=== PATIENT | male | born 1970 | race Caucasian/White ===

== ENCOUNTER 2022-09-08 01:43 | Inpatient (IN) ==
[2022-09-08] MEDS ORDERED: IOPAMIDOL 100 ML BOTTLE IV ONE (01:44)
[2022-09-08] MEDS ORDERED: ONDANSETRON 4 MG/2 ML VIAL IV ONE (02:40)
[2022-09-08] MEDS ORDERED: PANTOPRAZOLE 40 MG VIAL IV ONE (02:40)
[2022-09-08] MEDS ORDERED: fentaNYL 100 MCG/2 ML VIAL IV ONE ×3 (02:40→04:27)
--- NOTE | 2022-09-08 02:46 | Emergency Department Note ---
Abdominal Pain HPI General Chief Complaint: Abdominal Pain Stated Complaint: upper abd pain Time Seen by Provider: 09/08/22 01:55 Source: patient Mode of arrival: ambulatory Limitations: no limitations History of Present Illness HPI Narrative: Narrative: 52-year-old male presents complaining of sudden onset of pain yesterday in the subxiphoid region without radiation. He states he is treated off and on for GERD and takes pantoprazole every day. He states his pain is a 10 out of 10 and associated with vomiting x2 he denies any diarrhea any fever sweats or chills or shortness of breath. And he denies any hematemesis. His past medical history is positive for orthopedic surgeries and an appendectomy in the past. Related Data Home Medications Medication Instructions Recorded Confirmed acyclovir 200 mg capsule 200 mg PO .unknown 01/14/20 05/10/21 cetirizine 10 mg capsule 10 mg PO .unknown 01/14/20 05/10/21 chlorthalidone 25 mg tablet 25 mg PO .unknown 01/14/20 05/10/21 diclofenac sodium 50 mg 50 mg PO QDAY 01/14/20 05/10/21 tablet,delayed release fluticasone propionate 50 See Rx Instructions inhalation 01/14/20 05/10/21 mcg/actuation blister powder for .COMPLEX inhalation guaifenesin 600 mg tablet, 600 mg PO .unknown 01/14/20 05/10/21 extended release 12 hr ketotifen fumarate 0.025 % (0.035 1 drp ophthalmic (eye) .unknown 01/14/20 05/10/21 %) eye drops lidocaine 4 % topical gel See Rx Instructions topical BID 01/14/20 05/10/21 lisinopril 20 mg tablet 20 mg PO .unknown 01/14/20 05/10/21 metoprolol tartrate 50 mg tablet 50 mg PO QDAY 01/14/20 05/10/21 pantoprazole 20 mg tablet,delayed 20 mg PO QDAY 01/14/20 05/10/21 release quetiapine 100 mg tablet 100 mg PO .unknown 01/14/20 05/10/21 Previous Rx's Medication Instructions Recorded pregabalin 100 mg capsule 100 mg PO TID #90 caps 08/29/20 Allergies Allergy/AdvReac Type Severity Reaction Status Date / Time Amoxicillin [From Augmentin] Allergy Unknown Diarrhea Verified 09/08/22 01:50 clavulanic acid Allergy Unknown Diarrhea Verified 09/08/22 01:50 [From Augmentin] hydrocodone Allergy Unknown Itching Verified 09/08/22 01:50 Review of Systems ROS ROS Narrative: Narrative: All systems ED: reviewed and negative except as stated. PFSH Narrative Patient History Narrative: Narrative: Medical/Surgical/Family History All Active Problems (Updated 09/08/22 @ 04:47 by Gallo Mcallister MD) Pancreatitis, alcoholic, acute (Acute) Myofascial pain syndrome (Chronic) Hypertension (Chronic) Cervicalgia (Chronic) Headache (Chronic) Radiculopathy, cervical region (Chronic) Medical History (Updated 09/08/22 @ 04:47 by Gallo Mcallister MD) Cervicalgia Headache Hypertension Myofascial pain syndrome Radiculopathy, cervical region Surgical History (Updated 07/11/20 @ 11:16 by Darya Yin) History of surgery LEANNA #2 w/cath, w/o sed 06/17/20CESI #1 w/cath w/o sed 05/06/2020 LEANNA #1 w/cath, w/o sed 07/22/2019 Family History (Updated 07/11/20 @ 11:16 by Darya Yin) Other No pertinent family history Social History Smoking Status: Smokeless tobacco Exam Narrative Narrative: Narrative: General: Moderate distress secondary to pain alert and oriented x3 nonetheless and interactive with the cogent answers. Skin: Well perfused and hydrated without exanthem. Lungs: Clear to auscultation equal bilaterally. CV: Regular rate and rhythm without murmurs clicks rubs or gallops. Abdomen. No bowel sounds some distention positive tenderness greatest in the subxiphoid region with rebound tenderness from the lower quadrants referred to the subxiphoid region no CVA or psoas tenderness. General Limitations: no limitations Course Vital Signs Vital signs: Vital Signs Temperature 97.9 F 09/08/22 01:45 Pulse Rate 107 H 09/08/22 01:45 Respiratory Rate 20 09/08/22 01:45 Blood Pressure 162/108 09/08/22 01:45 Pulse Oximetry (%) 98 09/08/22 01:45 Oxygen Delivery Method 09/08/22 01:45 Temperature 97.9 F 09/08/22 01:45 Pulse Rate 107 H 09/08/22 01:45 Respiratory Rate 19 09/08/22 02:18 Blood Pressure 164/112 09/08/22 02:18 Pulse Oximetry (%) 99 09/08/22 02:18 Oxygen Delivery Method 09/08/22 01:45 MDM MDM Narrative Medical decision making narrative: Narrative: Patient was given IV fluids and treated for pain with multiple doses (300 mg), of fentanyl IV, he was also given Protonix and Mylanta. Blood sugar was 198 with slight acidosis (CO2 20), with increased anion gap of 19. In addition his lipase was 3000, suggesting a pancreatitis. He admitted he has been drinking soundly for approximately a month. His last drink was on (2 days), before this, he had been drinking 1/4-1/3 a bottle of vodka a day. He states he has seized once before, when in withdrawal. His CIWA score is 11. Patient will be admitted for pancreatitis pain control as well as benzodiazepines for DT prevention. Sepsis Sepsis Identified: No Lab Data Result diagrams: 09/08/22 02:21 09/08/22 02:20 Discharge Plan Patient/Caregiver Discharge Instructions Pt seen by PANEL MAKER/PA only: No Clinical Impression: Pancreatitis, alcoholic, acute Patient Disposition: Xfer [facility] Follow up with: Unknown,Unknown [Primary Care Provider] - Prescriptions: No Action pregabalin 100 mg capsule 100 mg PO TID Qty: 90 1RF diclofenac sodium 50 mg tablet,delayed release (DR/EC) 50 mg PO QDAY pantoprazole 20 mg tablet,delayed release (DR/EC) 20 mg PO QDAY acyclovir 200 mg capsule 200 mg PO .unknown cetirizine 10 mg capsule 10 mg PO .unknown chlorthalidone 25 mg tablet 25 mg PO .unknown fluticasone propionate 50 mcg/actuation blister with device See Rx Instructions INHALATION .COMPLEX Rx Instructions: unknown inhalation ; guaifenesin 600 mg tablet extended release 12hr 600 mg PO .unknown ketotifen fumarate 0.025 % (0.035 %) drops 1 drp OPHTHALMIC .unknown lidocaine 4 % gel See Rx Instructions TOPICAL BID Rx Instructions: unknown topical twice a day; lisinopril 20 mg tablet 20 mg PO .unknown metoprolol tartrate 50 mg tablet 50 mg PO QDAY quetiapine 100 mg tablet 100 mg PO .unknown
[2022-09-08 02:51] LABS: Basophils # (Auto) 0.02 K/mcL (0.00-0.30); Basophils % (Auto) 0.2 % (0.0-2.0); Eosinophils # (Auto) 0 K/mcL (0.00-0.70); Eosinophils % (Auto) 0 % (0.0-7.0); Hematocrit 36.5 % (40.1-51.0); Hemoglobin 13.2 g/dL (13.7-17.5); Lymphocytes # (Auto) 0.75 K/mcL (1.50-4.80); Lymphocytes % (Auto) 6.8 % (15.5-49.0); Mean Cell Volume 96.6 fL (80.0-100.0); Mean Corpuscular HGB Conc 36.2 g/dL (31.0-36.0); Monocytes # (Auto) 0.88 K/mcL (0.10-0.90); Neutrophils % (Auto) 84.5 % (38.0-78.0); Platelet Count 145 K/mcL (140-440); RBC 3.78 M/mcL (4.63-6.08); Red Cell Distribution Width 11.9 % (11.5-14.5); WBC 11.1 K/mcL (4.5-11.0)
[2022-09-08 03:03] LABS: ALT/SGPT 25 U/L (<40); AST/SGOT 58 U/L (<40); Albumin 4.4 gm/dL (3.2-5.2); Albumin/Globulin Ratio 1.3 (1.0-2.3); Alkaline Phosphatase 88 U/L (39-117); Bilirubin,Total 1.8 mg/dL (0.1-1.0); Blood Urea Nitrogen 21 mg/dL (6-20); Calcium 9.5 mg/dL (8.6-10.4); Carbon Dioxide 20 mmol/L (22-30); Chloride 93 mmol/L (96-108); Globulin 3.5 gm/dL (2.2-3.7); Glomerular Filtration Rate 68; Glucose 198 mg/dL (70-105)
[2022-09-08] MEDS: MAG HYDROX/AL HYDROX/SIMETH 30 ML ORAL.SUSP PO PRN ×3 (03:17→14:41)
[2022-09-08] MEDS ORDERED: 0.9 % SODIUM CHLORIDE 1,000 ML IV ONE ×2 (03:37→03:42)
[2022-09-08] MEDS ORDERED: LORazepam 2 MG/ML VIAL IV ONE (03:54)
[2022-09-08] MEDS ORDERED: ONDANSETRON 4 MG/2 ML VIAL IV PRN ×2 (04:47→11:13)
[2022-09-08] MEDS ORDERED: LACTULOSE 20 GM/30 ML ORAL.SOL PO PRN ×2 (04:47→11:13)
[2022-09-08] MEDS ORDERED: SENNOSIDES 1 TABLET PO PRN ×2 (04:47→11:13)
[2022-09-08] MEDS ORDERED: fentaNYL 100 MCG/2 ML VIAL IV PRN (04:53)
[2022-09-08] MEDS ORDERED: LACTATED RINGERS 1,000 ML IV SCH (05:00)
[2022-09-08] MEDS ORDERED: 0.9 % SODIUM CHLORIDE 1,000 ML IV SCH (05:00)
[2022-09-08] MEDS: LORazepam 2 MG/ML VIAL IV PRN ×3 (06:29→20:39)
[2022-09-08] MEDS: PANTOPRAZOLE 40 MG TABLET PO SCH ×2 (08:02→17:14)
--- NOTE | 2022-09-08 09:55 | Cat Scan Report ---
History: Nausea, vomiting, abdominal pain TECHNIQUE: Following injection of intravenous nonionic contrast the patient was scanned during the portal venous phase from above the diaphragm through the symphysis pubis. Delayed excretory phase images of the upper abdomen were obtained. FINDINGS: There is severe fatty infiltration throughout the liver. The liver is normal in size and there is no evidence of a mass or cirrhosis. The spleen is normal in size and homogeneous. The gallbladder appears normal with no calcified stones or thickening of the wall. The bile ducts are nondilated. Patient has severe diffuse pancreatitis. There is a large amount of edema surrounding the pancreas extending into the root of the mesentery. The edema extends laterally into the left para renal space, superiorly into the vineet hepatis and along the greater curvature of stomach. No pseudocyst or abscess have developed. The pancreas is not infarcted. The duct is nondilated. There are no stones in or adjacent to the pancreas. The adrenals are normal and symmetric. Couple small cysts are seen in the right kidney. The largest is in the lower pole measures 1.8 cm. The kidneys are otherwise normal with no stone, hydronephrosis or inflammation. The aorta and inferior vena cava are normal. The bowel pattern is normal without evidence of inflammation or obstruction. The appendix has been removed and there are small residual appendiceal stump. Mild disc space narrowing is present at L4-5 there is moderate disc space narrowing and spur formation at multiple levels in the lower thoracic spine. IMPRESSION: Severe pancreatitis. Severe fatty infiltration of the liver Interpreted and Authenticated by: Fermin Mott 09/08/22
[2022-09-08] MEDS: DOCUSATE SODIUM 100 MG CAPSULE PO SCH ×3 (10:38→22:10)
[2022-09-08] MEDS ORDERED: guaiFENesin 600 MG TAB.SR.12H PO PRN (10:55)
[2022-09-08] MEDS: LACTATED RINGERS 1,000 ML IV SCH ×5 (11:12→22:30)
[2022-09-08] MEDS ORDERED: LORazepam 1 MG TABLET PO PRN (11:13)
[2022-09-08] MEDS ORDERED: LORazepam 2 MG/ML VIAL IV PRN (11:13)
--- NOTE | 2022-09-08 11:20 | Internal Med History&Physical ---
HPI History of Present Illness Patient information: Note initiated : 09/08/22 at 11:09 am Service Date, if different from initiated Date: [] Patient: Go Kinsey 52 y/o M admitted on 09/08/22 for upper abd pain. Chief Complaint: [abdominal pain] Chief complaint: abdominal pain History of present illness: Mr. Kinsey is a 52 year old M history of chronic alcoholism, essential hypertensions, presenting with 1 day history of acute onset abdominal pain. Patient has a history of chronic alcoholism, and according to himself, he has been drinking even more for the past month since his father . He has been drinking 0.5 L of vodka per day with last use 2 days ago on . Yesterday night he had acute onset abdominal pain, epigastric with radiations to left upper quadrant, currently graded at 8 out of 10 in intensity, constant. It is complicated by nausea, vomiting, and loose stool. In addition, he has been to both alcohol Anonymous and inpatient alcohol rehab programs back in 1995. He is currently complain of insomnia, increased hand tremors, nausea vomiting, but he denies any hallucinations, anxiety, or agitations. Vital signs significant for tachycardia and tachypnea. Labs significant for serum lipase level 3050. AST ALT 58 and 25, respectively. Total bilirubin 1.8. CT of the abdomen showing presence of severe pancreatitis. No biliary obstructions or gallstone identified. Admission requested for alcoholic pancreatitis and potential alcohol withdrawal/delirium tremens. Constitutional Constitutional: Absent chills, excessive sweating, fatigue, fever(s) or weakness EENT Eyes: Absent blurry vision, change in vision, loss of vision or other visual disturbances Ears: Absent decreased hearing or tinnitus Nose, mouth and throat: Absent abnormal hearing, dry mouth, headache(s), nasal congestion or sore throat Cardiovascular Cardiovascular: Absent chest pain, chest pain at rest, edema, irregular heart rhythm or palpatations Respiratory Respiratory: Absent cough, dyspnea or wheezing Gastrointestinal Gastrointestinal: Present abdominal pain, nausea and vomiting; Absent constipation or diarrhea Additional comments: loose stool Musculoskeletal Musculoskeletal: Absent back pain, deformity, limited range of motion, muscle cramps, muscle weakness or numbness Integumentary Integumentary: Absent lesions, rash or wounds Neurological Neurological: Absent focal weakness, headache(s) or numbness Additional comments: increased hand tremors Psychiatric Psychiatric: Absent anxiety, depression or hallucinations PFSH PFSH All Active Problems (Updated 09/08/22 @ 11:22 by Tom Ferro MD) Steatohepatitis, alcoholic (Acute) Anemia, hyperchromic (Acute) Alcohol withdrawal delirium (Acute) Pancreatitis, alcoholic, acute (Acute) Myofascial pain syndrome (Chronic) Hypertension (Chronic) Cervicalgia (Chronic) Headache (Chronic) Radiculopathy, cervical region (Chronic) Medical History (Updated 09/08/22 @ 11:22 by Tom Ferro MD) Cervicalgia Headache Hypertension Myofascial pain syndrome Radiculopathy, cervical region Surgical History (Updated 07/11/20 @ 11:16 by Darya Yin) History of surgery LEANNA #2 w/cath, w/o sed 06/17/20CESI #1 w/cath w/o sed 05/06/2020 LEANNA #1 w/cath, w/o sed 07/22/2019 Family History (Updated 07/11/20 @ 11:16 by Darya Yin) Other No pertinent family history Social History smoking status: Former smoker MEDS/ALLERGIES Home Medications and Allergies Home Medications Medication Instructions Recorded Confirmed Type acyclovir 200 mg capsule 200 mg PO .unknown 01/14/20 05/10/21 History cetirizine 10 mg capsule 10 mg PO BID 01/14/20 09/08/22 History chlorthalidone 25 mg tablet 25 mg PO .unknown 01/14/20 05/10/21 History diclofenac sodium 50 mg 50 mg PO TID 01/14/20 09/08/22 History tablet,delayed release fluticasone propionate 50 See Rx Instructions inhalation 01/14/20 05/10/21 History mcg/actuation blister powder for .COMPLEX inhalation guaifenesin 600 mg tablet, 600 mg PO BIDP PRN Allergic 01/14/20 09/08/22 History extended release 12 hr Symptoms ketotifen fumarate 0.025 % (0.035 1 drp ophthalmic (eye) .unknown 01/14/20 05/10/21 History %) eye drops lidocaine 4 % topical gel See Rx Instructions topical BID 01/14/20 05/10/21 History lisinopril 20 mg tablet 30 mg PO QAM 01/14/20 09/08/22 History metoprolol tartrate 50 mg tablet 50 mg PO QDAY 01/14/20 05/10/21 History pantoprazole 20 mg tablet,delayed 20 mg PO BID 01/14/20 09/08/22 History release quetiapine 100 mg tablet 100 mg PO .unknown 01/14/20 05/10/21 History pregabalin 100 mg capsule 50 mg PO BID 09/08/22 09/08/22 History Allergies Allergy/AdvReac Type Severity Reaction Status Date / Time Amoxicillin [From Augmentin] Allergy Unknown Diarrhea Verified 09/08/22 01:50 clavulanic acid Allergy Unknown Diarrhea Verified 09/08/22 01:50 [From Augmentin] hydrocodone Allergy Unknown Itching Verified 09/08/22 01:50 EXAM Constitutional Vitals: Temp Pulse Resp BP Pulse Ox O2 Del Method 36.4 C 118 H 25 H 168/105 96 09/08/22 08:01 09/08/22 10:00 09/08/22 10:00 09/08/22 10:00 09/08/22 10:00 09/08/22 01:45 General appearance: cooperative and no acute distress Head Head exam: Present atraumatic and normocephalic Eye Eye exam: Present EOMI and PERRL ENT ENT exam: Present mucous membranes moist, normal exam and normal external ear exam Neck Neck exam: Present normal inspection; Absent lymphadenopathy, tenderness or thyromegaly Respiratory Respiratory exam: Absent accessory muscle use, respiratory distress or wheezes Cardiovascular Cardiovascular exam: Present tachycardia; Absent JVD GI/Abdominal GI/Abdominal exam: Present normal bowel sounds, soft and tenderness; Absent o rganomegaly Rectal Rectal exam: Present deferred Extremities Exam Extremities exam: Present full ROM, normal capillary refill and normal inspection; Absent tenderness Neurological Exam Neurological exam: Present alert, CN II-XII intact and oriented X3; Absent motor sensory deficit Additional comments: Increased hand tremors Psychiatric Psychiatric exam: Present normal affect and normal mood; Absent anxious or depressed Skin Skin exam: Present dry and intact DATA Data Completed and Pending Labs: Labs from last 24 hours 09/08/22 09/08/22 09/08/22 03:03 02:21 02:20 WBC 11.1 H RBC 3.78 L Hgb 13.2 L Hct 36.5 L MCV 96.6 MCH 34.9 H MCHC 36.2 H RDW 11.9 Plt Count 145 MPV 10.0 Immature Gran % (Auto) 0.5 Neut % (Auto) 84.5 H Lymph % (Auto) 6.8 L [place] % (Auto) 8.0 Eos % (Auto) 0 Baso % (Auto) 0.2 Lymph # (Auto) 0.75 L [place] # (Auto) 0.88 Eos # (Auto) 0 Baso # (Auto) 0.02 Immature Gran # 0.06 H Absolute Neutrophils 9.35 H Sodium 132 L Potassium 3.7 Chloride 93 L Carbon Dioxide 20 L Anion Gap 19.0 H BUN 21 H Creatinine 1.2 POC Creatinine 1.0 GFR Calculation 68 Glucose 198 H Calcium 9.5 Total Bilirubin 1.8 H AST 58 H ALT 25 Alkaline Phosphatase 88 Total Protein 7.9 Albumin 4.4 Globulin 3.5 Albumin/Globulin Ratio 1.3 Lipase 3050 A/P Assessment and plan (1) Pancreatitis, alcoholic, acute: Status: Acute (2) Alcohol withdrawal delirium: Status: Acute (3) Anemia, hyperchromic: Status: Acute (4) Steatohepatitis, alcoholic: Status: Acute (5) Hypertension: Status: Chronic Narrative A/P Narrative: Assessment and Plans: 1. Acute alcoholic pancreatitis: Inpatient PCU with telemetry Clear liquid diet LR@200cc/hr Tylenol PRN mild pain Oxycodone PRN moderate pain Dilaudid IV PRN severe pain Zofran IV PRN nausea vomiting Computer Analyst patient about alcoholism, see below 2. Alcohol withdrawal/delirium tremens: CIWA protocol with Ativan (PO if tolerates, IV if cannot tolerate PO) Ativan IV PRN seizure activities Folic acid Multivitamins Thiamine manager film consult for alcohol rehab referal Physical therapy 3. Essential hypertension: Lisinopril Metoprolol Clonidine 4. Alcoholic steatohepatitis: Continue to monitor 5. Anemia, hyperchromic: cbc w/ auto diff in the morning to trend H/H GI ppx: oral PPI DVT ppx: Lovenox Code status: Full Prognosis: guarded Disposition: inpatient PCU; PT Time Spent With Patient Time: Total time spent is greater than 50% in coordination of care (as documented) at patient's floor/unit and/or counseling patient: Total time spent with greater than 50% in coordination of care (as documented) at patient's floor/unit and/or counseling patient:: 50 - 70 minutes
[2022-09-08] MEDS: HYDROmorphone 0.5 MG/0.5 ML SYRINGE IV PRN ×4 (11:38→23:36)
[2022-09-08] MEDS ORDERED: LISINOPRIL 20 MG TABLET PO ONE (12:14)
[2022-09-08] MEDS ORDERED: METOPROLOL TARTRATE 25 MG TABLET PO ONE (12:35)
[2022-09-08] MEDS: 0.9 % SODIUM CHLORIDE 10 ML SYRINGE IV SCH ×4 (14:00→22:37)
[2022-09-08] MEDS: DICLOFENAC SODIUM 50 MG PO SCH ×2 (14:27→22:10)
[2022-09-08] MEDS: cloNIDine HCL 0.1 MG TABLET PO PRN (16:27)
[2022-09-08] MEDS: hydrALAZINE 20 MG/ML VIAL IV PRN (17:33)
[2022-09-08] MEDS ORDERED: hydrALAZINE 20 MG/ML VIAL ONE (17:44)
[2022-09-08] MEDS: oxyCODONE HCL 5 MG TABLET PO PRN (18:57)
[2022-09-08] MEDS: HALOPERIDOL LACTATE 5 MG/ML VIAL IV PRN (20:10)
[2022-09-08] MEDS: hydrOXYzine 25 MG TABLET PO PRN (20:12)
[2022-09-08] MEDS: DEXMEDETOMIDINE 100 ML IV ONE ×2 (20:25→22:09)
[2022-09-08] MEDS: DEXMEDETOMIDINE 400 MCG in PREMIX 1 BAG IV SCH ×2 (20:25→23:46)
[2022-09-08] MEDS: PREGABALIN 100 MG CAPSULE PO SCH (20:38)
[2022-09-08] MEDS: CETIRIZINE 10 MG TABLET PO SCH (22:11)
[2022-09-08] MEDS ORDERED: LIDOCAINE 2% URO-JET 10 ML JEL.PF.APP UR ONE (22:32)
[2022-09-08 23:41] LABS: Appearance,Urine CLEAR (Clear); Bilirubin,Urine NEGATIVE (Negative); Color,Urine LT. YELLOW; Culture Indicated,Urine No; Glucose,Urine (UA) 500 mg/dL (Negative); Ketones,Urine NEGATIVE (Negative); Leukocyte Esterase,Urine NEGATIVE /uL (Negative); Mucus,Urine FEW /hpf; Nitrate,Urine NEGATIVE (Negative); Protein,Urine NEGATIVE (Negative); Specific Gravity,Urine <= 1.005 (1.000-1.035); Urine Blood TRACE-INTACT ery/mcL (Negative); Urine RBC < 1 /hpf (0-3); Urine Squamous Epithelial Cell 0 /hpf (0-4); Urine WBC 0 /hpf (0-4); Urobilinogen,Urine Normal
[2022-09-08] MEDS ORDERED: DEXMEDETOMIDINE 100 ML IV ONE (23:52)
[2022-09-09] MEDS: oxyCODONE HCL 5 MG TABLET PO PRN (00:35)
[2022-09-09] MEDS: LACTATED RINGERS 1,000 ML IV SCH ×3 (02:31→09:44)
[2022-09-09] MEDS: DEXMEDETOMIDINE 400 MCG in PREMIX 1 BAG IV SCH ×6 (03:32→21:07)
[2022-09-09] MEDS ORDERED: DEXMEDETOMIDINE 100 ML IV ONE (03:42)
[2022-09-09] MEDS: 0.9 % SODIUM CHLORIDE 10 ML SYRINGE IV SCH ×5 (05:41→22:11)
[2022-09-09 07:13] LABS: Phosphorous 1.5 mg/dL (2.5-4.5)
[2022-09-09] MEDS: LORazepam 2 MG/ML VIAL IV PRN ×2 (07:28→11:51)
[2022-09-09 08:13] LABS: Hematocrit 33.6 % (40.1-51.0); Mean Cell Volume 99.4 fL (80.0-100.0); Mean Corpuscular HGB Conc 35.7 g/dL (31.0-36.0); Mean Platelet Volume 10.9 fL (8.8-12.5); Platelet Count 93 K/mcL (140-440); RBC 3.38 M/mcL (4.63-6.08); Red Cell Distribution Width 12.1 % (11.5-14.5); WBC 9.9 K/mcL (4.5-11.0)
[2022-09-09 08:16] LABS: Band Neutrophils % 4 % (0-10); Lymphocytes % 13 % (15-49); Monocytes % (Manual) 6 % (1-12); Platelet Estimate DECREASED (Normal); RBC Morphology NORMAL (Normal); Segmented Neutrophils % 77 % (38-78)
[2022-09-09] MEDS ORDERED: IPRATROPIUM/ALBUTEROL 3 ML AMPUL.NEB NEB PRN (08:38)
[2022-09-09] MEDS: HALOPERIDOL LACTATE 5 MG/ML VIAL IV PRN (08:56)
--- NOTE | 2022-09-09 09:04 | XRay Report ---
HISTORY: Dyspnea, pancreatitis FINDINGS: Lung volumes are small due to very poor inspiration. There is mild opacification of both lung bases which is probably atelectasis. Superimposed pneumonia cannot be excluded. The heart size is within upper limits of normal. There is no pleural effusion or pneumothorax. Incidentally noted is a left shoulder prosthesis. IMPRESSION: Poor inspiration with mild atelectasis in both lung bases Interpreted and Authenticated by: Fermin Mott 09/09/22
[2022-09-09] MEDS ORDERED: MAGNESIUM SULFATE 8.12 MEQ/2 ML VIAL IV ONE (09:11)
[2022-09-09] MEDS ORDERED: MAGNESIUM SULFATE 8.12 MEQ in DEXTROSE 5% IN WATER 50 ML IV ONE (09:15)
[2022-09-09] MEDS ORDERED: LORazepam 2 MG/ML VIAL IV SCH ×2 (09:15→16:00)
--- NOTE | 2022-09-09 09:20 | Internal Med Progress Note ---
SUBJECTIVE Subjective Patient information: Note initiated : 09/09/22 at 9:10 am Service Date, if different from initiated Date: [] Patient: Go Kinsey 52 y/o M admitted on 09/08/22 for upper abd pain. Chief Complaint: [] Interval history: Mr. Kinsey is a 52 year old M history of chronic alcoholism, essential hypertensions, presenting with 1 day history of acute onset abdominal pain. Patient has a history of chronic alcoholism, and according to himself, he has been drinking even more for the past month since his father . He has been drinking 0.5 L of vodka per day with last use 2 days ago on . Yesterday night he had acute onset abdominal pain, epigastric with radiations to left upper quadrant, currently graded at 8 out of 10 in intensity, constant. It is complicated by nausea, vomiting, and loose stool. In addition, he has been to both alcohol Anonymous and inpatient alcohol rehab programs back in 1995. He is currently complain of insomnia, increased hand tremors, nausea vomiting, but he denies any hallucinations, anxiety, or agitations. Vital signs significant for tachycardia and tachypnea. Labs significant for serum lipase level 3050. AST ALT 58 and 25, respectively. Total bilirubin 1.8. CT of the abdomen showing presence of severe pancreatitis. No biliary obstructions or gallstone identified. Admission requested for alcoholic pancreatitis and potential alcohol withdrawal/delirium tremens. 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 CIWA score 14. Rapid response was called, and for limb restraint were placed. Precedex drip was also started last night, and patient is to be transferred to ICU status. Rest of the subjective not obtained due to clinical situations. Chest x-ray ordered this morning showing poor variations with bilateral a telectasis. Transfer patients to ICU status. 4-limbs restrained in place. Continue Precedex drips. Add scheduled Ativan IV. Saline lock the patient to prevent fluid overloading the patient. We will make the patient n.p.o. status right now due to his mentations. Continue CIWA protocol. Continue to provide narcotics as needed for abdominal pain due to alcoholic pancreatitis. Constitutional Vitals: Vital Signs Temp Pulse Resp BP Pulse Ox O2 Del Method O2 Flow Rate 37.4 C H 103 H 33 H 121/74 96 2 09/09/22 08:02 09/09/22 08:02 09/09/22 08:02 09/09/22 08:02 09/09/22 08:38 09/09/22 08:38 09/09/22 08:38 Period Temp Pulse Resp BP Sys/Esquivel Pulse Ox O2 Del Method O2 Flow Rate Last 24 Hr 36.8 C-37.4 C 92-124 17-33 98-178/66-113 89-100 Nasal Cannula- Room Air 2-2 Intake and Output 09/08/22 09/09/22 09/09/22 19:59 03:59 11:59 Intake Total 2603 2276 100 Output Total 400 1200 375 Balance 2203 1076 -275 Weight 87.997 kg Intake & Output: Intake & Output 09/08/22 09/09/22 09/09/22 19:59 03:59 11:59 Intake Total 2603 2276 100 Output Total 400 1200 375 Balance 2203 1076 -275 Weight 87.997 kg Intake: IV 1283 2156 100 Precedex 400 Mcg/100 ml 179 100 Dextrose 400 Mcg In Premix 1 Bag @ 0.2 MCG/KG/HR 4.105 mls/ hr IV .Q24H [facility] Rx#:[id number] Lactated Ringers 1,000 ml @ 200 1283 1977 mls/hr IV .Q5H [facility] Rx#: [id number] Oral 1320 120 Output: Urine Catheter Amount 800 375 Void Amount 400 400 Other: Meal Dinner Percent of Meal Consumed 50% Feeding Ability Independent Urine Appearance Clear Clear Clear Uretheral (Berry) Clear Urine Color Light Amanda Yellow Yellow [place] Uretheral (Berry) Yellow Urine Odor Normal Normal Uretheral (Berry) Normal # Voids 1 General appearance: average body habitus, disheveled and moderate distress; no cooperative Head Head exam: Present atraumatic and normal inspection Eye Eye exam: Present normal appearance ENT ENT exam: Present mucous membranes moist, normal exam and normal external ear exam Neck Neck exam: Present normal inspection Respiratory Respiratory exam: Present normal respiratory exam Cardiovascular Cardiovascular exam: Present normal rate and rhythm GI/Abdominal GI/Abdominal exam: Present normal bowel sounds Extremities Exam Extremities exam: Present normal inspection Additional comments: [address] Back Exam Back exam: Present normal inspection Neurological Exam Neurological exam: Present alert and altered; Absent oriented X3 Psychiatric Psychiatric exam: Present agitated Skin Skin exam: Present intact and warm OBJ DATA Labs CBC & Chem 7: 09/09/22 05:53 09/08/22 02:20 Labs: Abnormal Lab Results 09/09/22 09/09/22 09/09/22 08:45 05:53 05:53 WBC RBC 3.38 L Hgb 12.0 L Hct 33.6 L MCH 35.5 H MCHC Plt Count 93 L Neut % (Auto) Lymph % (Auto) Lymph # (Auto) Lymphocytes % 13 L Immature Gran # Absolute Neutrophils Platelet Estimate Decreased A POC pH 7.49 H POC pCO2 30.8 L POC pO2 69 L Sodium Chloride Carbon Dioxide Anion Gap BUN Glucose Phosphorus 1.5 L Magnesium 1.0 L Total Bilirubin AST Urine Glucose (UA) Urine Occult Blood Urine Mucus 09/08/22 09/08/22 09/08/22 22:58 02:21 02:20 WBC 11.1 H RBC 3.78 L Hgb 13.2 L Hct 36.5 L MCH 34.9 H MCHC 36.2 H Plt Count Neut % (Auto) 84.5 H Lymph % (Auto) 6.8 L Lymph # (Auto) 0.75 L Lymphocytes % Immature Gran # 0.06 H Absolute Neutrophils 9.35 H Platelet Estimate POC pH POC pCO2 POC pO2 Sodium 132 L Chloride 93 L Carbon Dioxide 20 L Anion Gap 19.0 H BUN 21 H Glucose 198 H Phosphorus Magnesium Total Bilirubin 1.8 H AST 58 H Urine Glucose (UA) 500 A Urine Occult Blood Trace-intact A Urine Mucus Few A Meds: Medications Acetaminophen (Acetaminophen 325 Mg Tablet) 650 mg PO Q6HP PRN; Protocol PRN Reason: Per Pain Protocol/Fever > 101 Al Hydrox/Mg Hydrox/Simethicone (Mag Hydrox/Al Hydrox/Simeth 30 Ml Oral.Susp) 30 ml PO Q4-6HP PRN PRN Reason: Dyspepsia Last Admin: 09/08/22 14:41 Dose: 30 ml Albuterol/Ipratropium (Ipratropium/Albuterol 3 Ml Ampul.Neb) 3 ml NEB Q4HRT PRN PRN Reason: Wheezing Albuterol/Ipratropium (Ipratropium/Albuterol 3 Ml Ampul.Neb) 3 ml NEB ONCE PRN PRN Reason: Shortness Of Breath Cetirizine HCl (Cetirizine 10 Mg Tablet) 10 mg PO BID [facility] Last Admin: 09/08/22 22:11 Dose: Not Given Clonidine HCl (Clonidine Hcl 0.1 Mg Tablet) 0.1 mg PO Q4HP PRN PRN Reason: ALC Last Admin: 09/08/22 16:27 Dose: 0.1 mg Docusate Sodium (Docusate Sodium 100 Mg Capsule) 100 mg PO BID [facility] Last Admin: 09/08/22 22:10 Dose: Not Given Docusate Sodium (Docusate Sodium 100 Mg Capsule) 100 mg PO BID [facility] Last Admin: 09/08/22 20:38 Dose: Not Given Enoxaparin Sodium (Enoxaparin 40 Mg/0.4 Ml Syringe) 40 mg SQ DAILY [facility] Folic Acid (Folic Acid 1 Mg Tablet) 1 mg PO DAILY [facility] Guaifenesin (Guaifenesin 600 Mg Tab.Sr.12h) 600 mg PO BIDP PRN PRN Reason: Allergic Symptoms Haloperidol Lactate (Haloperidol Lactate 5 Mg/Ml Vial) 0.5 mg IV Q2HP PRN PRN Reason: Alcohol Withdrawal/Assess CIWA Last Admin: 09/09/22 08:56 Dose: 0.5 mg Hydralazine HCl (Hydralazine 20 Mg/Ml Vial) 10 mg IV Q4-6HP PRN PRN Reason: Hypertension Last Admin: 09/08/22 17:33 Dose: 10 mg Hydromorphone HCl (Hydromorphone 0.5 Mg/0.5 Ml Syringe) 0.5 mg IV Q2HP PRN; Protocol PRN Reason: Per Pain Protocol Last Admin: 09/08/22 23:36 Dose: 0.5 mg Hydroxyzine HCl (Hydroxyzine 25 Mg Tablet) 0 mg PO Q4HP PRN PRN Reason: Anxiety/Agitation Lactated Ringer's (Lactated Ringers) 1,000 mls @ 200 mls/hr IV .Q5H [facility] Last Admin: 09/09/22 03:32 Dose: 200 mls/hr Dexmedetomidine HCl 400 mcg/ (Premix) 100 mls @ 4.105 mls/hr IV .Q24H [facility]; Protocol Last Admin: 09/09/22 07:44 Dose: 1.3 mcg/kg/hr, 26.683 mls/hr Iron Carb/Multivit/[place]/Folic Acid (Multivit,Ther Iron,Ca,Fa & Min 1 Tablet) 1 tab PO DAILY [facility] Lactulose (Lactulose 20 Gm/30 Ml Oral.Rdaha) 10 gm PO DAILYP PRN PRN Reason: Constipation Lactulose (Lactulose 20 Gm/30 Ml Oral.Radha) 10 gm PO DAILYP PRN PRN Reason: Constipation Lisinopril (Lisinopril 20 Mg Tablet) 30 mg PO QAM [facility] Lorazepam (Lorazepam 2 Mg/Ml Vial) 1 mg IV Q1HP PRN PRN Reason: Seizure Activity Last Admin: 09/09/22 01:09 Dose: 1 mg Lorazepam (Lorazepam 1 Mg Tablet) 2 mg PO Q2HP PRN PRN Reason: CIWA-A >6 or HR >100 Lorazepam (Lorazepam 2 Mg/Ml Vial) 0 mg IV UD PRN; Protocol PRN Reason: Alcohol Withdrawal/Assess CIWA Last Admin: 09/09/22 07:28 Dose: 2 mg Metoprolol Tartrate (Metoprolol Tartrate 25 Mg Tablet) 25 mg PO QDAY [facility] Ondansetron HCl (Ondansetron 4 Mg/2 Ml Vial) 4 mg IV Q4HP PRN; Protocol PRN Reason: Nausea And Vomiting Ondansetron HCl (Ondansetron 4 Mg/2 Ml Vial) 4 mg IV Q4HP PRN; Protocol PRN Reason: Nausea And Vomiting Oxycodone HCl (Oxycodone Hcl 5 Mg Tablet) 10 mg PO Q4HP PRN; Protocol PRN Reason: Per Pain Protocol Last Admin: 09/09/22 00:35 Dose: 10 mg Pantoprazole Sodium (Pantoprazole 40 Mg Tablet) 40 mg PO QAMAC [facility] Last Admin: 09/08/22 08:02 Dose: 40 mg Pantoprazole Sodium (Pantoprazole 40 Mg Tablet) 40 mg PO BIDAC [facility] Last Admin: 09/08/22 17:14 Dose: 40 mg Diclofenac Sodium 50 Mg Tablet,Delayed Release 1 dose PO TID [facility] Last Admin: 09/08/22 22:10 Dose: Not Given Pregabalin (Pregabalin 100 Mg Capsule) 50 mg PO BID [facility] Last Admin: 09/08/22 20:38 Dose: Not Given Senna (Sennosides 1 Tablet) 2 tab PO HSP PRN PRN Reason: Constipation Senna (Sennosides 1 Tablet) 2 tab PO HSP PRN PRN Reason: Constipation Sodium Chloride (0.9 % Sodium Chloride 10 Ml Syringe) 10 ml IV Q8 [facility] Last Admin: 09/09/22 05:41 Dose: 10 ml Sodium Chloride (0.9 % Sodium Chloride 10 Ml Syringe) 10 ml IV Q8 [facility] Last Admin: 09/09/22 05:41 Dose: Not Given Thiamine HCl (Thiamine 100 Mg Tablet) 100 mg PO QDAY [facility] A/P Assessment and plan (1) Pancreatitis, alcoholic, acute: Status: Acute (2) Alcohol withdrawal delirium: Status: Acute (3) Anemia, hyperchromic: Status: Acute (4) Steatohepatitis, alcoholic: Status: Acute (5) Hypertension: Status: Chronic (6) Hypomagnesemia: Status: Acute Narrative A/P Narrative: Assessment and Plans: 1. Acute alcoholic pancreatitis: Inpatient ICU with telemetry We will make the patient n.p.o. 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 Alcohol withdrawal/delirium tremens: CIWA protocol with Ativan (PO if tolerates, IV if cannot tolerate PO) 4-limbs restrained in place Continue Precedex drips Add scheduled Ativan IV Ativan IV PRN seizure activities Folic acid Multivitamins Thiamine incident manager consult for alcohol rehab referral Physical therapy evaluation and treatment 3. Essential hypertension: Lisinopril Metoprolol Clonidine 4. Alcoholic steatohepatitis: Continue to monitor 5. Anemia, hyperchromic: cbc w/ auto diff in the morning to trend H/H 6. Hypomagnesemia: MgSO4 IV replacement Daily Mg level to trend serum level GI ppx: IV Protonix DVT ppx: Lovenox Code status: Full Prognosis: extremely guarded Disposition: inpatient ICU; PT Critical Care Time: 60min Time Spent With Patient Time: Total time spent is greater than 50% in coordination of care (as documented) at patient's floor/unit and/or counseling patient: Total time spent with greater than 50% in coordination of care (as documented) at patient's floor/unit and/or counseling patient:: 50 - 70 minutes Critical Care Time: Yes Total Critical Care Time: 60
[2022-09-09 09:27] LABS: Basophils # (Auto) 0.03 K/mcL (0.00-0.30); Basophils % (Auto) 0.3 % (0.0-2.0); Eosinophils # (Auto) 0.01 K/mcL (0.00-0.70); Eosinophils % (Auto) 0.1 % (0.0-7.0); Hematocrit 34.2 % (40.1-51.0); Hemoglobin 12.1 g/dL (13.7-17.5); Lymphocytes # (Auto) 0.99 K/mcL (1.50-4.80); Lymphocytes % (Auto) 8.9 % (15.5-49.0); Mean Cell Volume 99.4 fL (80.0-100.0); Mean Corpuscular HGB Conc 35.4 g/dL (31.0-36.0); Mean Platelet Volume 11.1 fL (8.8-12.5); Monocytes # (Auto) 0.72 K/mcL (0.10-0.90); Monocytes % (Auto) 6.5 % (1.0-12.0); Neutrophils % (Auto) 81.7 % (38.0-78.0); Platelet Count 97 K/mcL (140-440); RBC 3.44 M/mcL (4.63-6.08); Red Cell Distribution Width 12.2 % (11.5-14.5); WBC 11.1 K/mcL (4.5-11.0)
[2022-09-09] MEDS: DOCUSATE SODIUM 100 MG CAPSULE PO SCH ×3 (09:45→19:31)
[2022-09-09] MEDS: PANTOPRAZOLE 40 MG TABLET PO SCH ×2 (09:46)
[2022-09-09] MEDS: DICLOFENAC SODIUM 50 MG PO SCH ×3 (09:47→19:32)
[2022-09-09] MEDS: LISINOPRIL 20 MG TABLET PO SCH (09:47)
[2022-09-09] MEDS: METOPROLOL TARTRATE 25 MG TABLET PO SCH (09:47)
[2022-09-09] MEDS: THIAMINE 100 MG TABLET PO SCH (09:47)
[2022-09-09] MEDS: PREGABALIN 100 MG CAPSULE PO SCH ×2 (09:47→19:32)
[2022-09-09] MEDS: MULTIVIT,THER IRON,CA,FA & MIN 1 TABLET PO SCH (09:47)
[2022-09-09] MEDS: FOLIC ACID 1 MG TABLET PO SCH (09:47)
[2022-09-09] MEDS: CETIRIZINE 10 MG TABLET PO SCH ×2 (09:48→19:32)
[2022-09-09 09:52] LABS: ALT/SGPT 13 U/L (<40); AST/SGOT 29 U/L (<40); Albumin 3.3 gm/dL (3.2-5.2); Albumin/Globulin Ratio 1.2 (1.0-2.3); Alkaline Phosphatase 56 U/L (39-117); Blood Urea Nitrogen 8 mg/dL (6-20); Calcium 8.6 mg/dL (8.6-10.4); Carbon Dioxide 23 mmol/L (22-30); Chloride 95 mmol/L (96-108); Globulin 2.8 gm/dL (2.2-3.7); Glomerular Filtration Rate 85; Glucose 115 mg/dL (70-105)
[2022-09-09] MEDS: ENOXAPARIN 40 MG/0.4 ML SYRINGE SQ SCH (09:58)
[2022-09-09] MEDS: PANTOPRAZOLE 40 MG VIAL IV SCH (09:58)
[2022-09-09] MEDS: LORazepam 2 MG/ML VIAL IV SCH ×2 (15:56→19:30)
[2022-09-10] MEDS: LORazepam 2 MG/ML VIAL IV SCH ×7 (00:59→23:42)
[2022-09-10] MEDS: DEXMEDETOMIDINE 400 MCG in PREMIX 1 BAG IV SCH ×4 (01:07→23:40)
[2022-09-10] MEDS: 0.9 % SODIUM CHLORIDE 10 ML SYRINGE IV SCH ×3 (05:16→20:07)
[2022-09-10 07:05] LABS: Hematocrit 35.8 % (40.1-51.0); Hemoglobin 12.1 g/dL (13.7-17.5); Mean Cell Volume 102.3 fL (80.0-100.0); Mean Corpuscular HGB Conc 33.8 g/dL (31.0-36.0); Mean Platelet Volume 11.7 fL (8.8-12.5); Platelet Count 86 K/mcL (140-440); Red Cell Distribution Width 12.4 % (11.5-14.5); WBC 11.5 K/mcL (4.5-11.0)
[2022-09-10 07:09] LABS: Basophils # (Auto) 0.03 K/mcL (0.00-0.30); Basophils % (Auto) 0.3 % (0.0-2.0); Eosinophils # (Auto) 0.06 K/mcL (0.00-0.70); Eosinophils % (Auto) 0.5 % (0.0-7.0); Hematocrit 35.3 % (40.1-51.0); Hemoglobin 12.1 g/dL (13.7-17.5); Lymphocytes # (Auto) 1.23 K/mcL (1.50-4.80); Lymphocytes % (Auto) 10.6 % (15.5-49.0); Mean Cell Volume 102.3 fL (80.0-100.0); Mean Corpuscular HGB Conc 34.3 g/dL (31.0-36.0); Mean Platelet Volume 11.4 fL (8.8-12.5); Monocytes # (Auto) 0.88 K/mcL (0.10-0.90); Monocytes % (Auto) 7.6 % (1.0-12.0); Neutrophils % (Auto) 79.7 % (38.0-78.0); Platelet Count 89 K/mcL (140-440); RBC 3.45 M/mcL (4.63-6.08); Red Cell Distribution Width 12.4 % (11.5-14.5); WBC 11.6 K/mcL (4.5-11.0)
[2022-09-10] MEDS: PANTOPRAZOLE 40 MG VIAL IV SCH (07:17)
[2022-09-10 07:20] LABS: Phosphorous 1.7 mg/dL (2.5-4.5)
[2022-09-10] MEDS: ENOXAPARIN 40 MG/0.4 ML SYRINGE SQ SCH (08:05)
[2022-09-10 08:24] LABS: Band Neutrophils % 9 % (0-10); Lymphocytes % 7 % (15-49); Macrocytosis 1+ (None Seen); Metamyelocytes % 1 %; Monocytes % (Manual) 9 % (1-12); Platelet Estimate DECREASED (Normal); RBC Morphology ABNORMAL (Normal); Segmented Neutrophils % 74 % (38-78)
[2022-09-10] MEDS: DICLOFENAC SODIUM 50 MG PO SCH ×3 (09:12→20:06)
[2022-09-10] MEDS: DOCUSATE SODIUM 100 MG CAPSULE PO SCH ×3 (09:12→20:06)
[2022-09-10] MEDS ORDERED: MAGNESIUM SULFATE 8.12 MEQ/2 ML VIAL IV ONE (10:13)
[2022-09-10] MEDS ORDERED: MAGNESIUM SULFATE 8.12 MEQ in DEXTROSE 5% IN WATER 50 ML IV ONE (11:00)
--- NOTE | 2022-09-10 11:00 | Internal Med Progress Note ---
SUBJECTIVE Subjective Patient information: Note initiated : 09/10/22 at 10:57 am Service Date, if different from initiated Date: [] Patient: Go Kinsey 52 y/o M admitted on 09/08/22 for upper abd pain. Chief Complaint: [] Interval history: Mr. Kinsey is a 52 year old M history of chronic alcoholism, essential hypertensions, presenting with 1 day history of acute onset abdominal pain. Patient has a history of chronic alcoholism, and according to himself, he has been drinking even more for the past month since his father . He has been drinking 0.5 L of vodka per day with last use 2 days ago on . Yesterday night he had acute onset abdominal pain, epigastric with radiations to left upper quadrant, currently graded at 8 out of 10 in intensity, constant. It is complicated by nausea, vomiting, and loose stool. In addition, he has been to both alcohol Anonymous and inpatient alcohol rehab programs back in 1995. He is currently complain of insomnia, increased hand tremors, nausea vomiting, but he denies any hallucinations, anxiety, or agitations. Vital signs significant for tachycardia and tachypnea. Labs significant for serum lipase level 3050. AST ALT 58 and 25, respectively. Total bilirubin 1.8. CT of the abdomen showing presence of severe pancreatitis. No biliary obstructions or gallstone identified. Admission requested for alcoholic pancreatitis and potential alcohol withdrawal/delirium tremens. 09/09: Patient's became very agitated and confused last night/therapist respiratory. CIWA scor e 14. Rapid response was called, and for limb restraint were placed. Precedex drip was also started last night, and patient is to be transferred to ICU status. Rest of the subjective not obtained due to clinical situations. Chest x-ray ordered this morning showing poor variations with bilateral atelectasis. Transfer patients to ICU status. 4-limbs restrained in place. Continue Precedex drips. Add scheduled Ativan IV. Saline lock the patient to prevent fluid overloading the patient. We will make the patient n.p.o. status right now due to his mentations. Continue CIWA protocol. Continue to provide narcotics as needed for abdominal pain due to alcoholic pancreatitis. 09/10: Patient was less agitated last night compared to the night before. Currently ordered restraints are off. He still on Precedex drip. CIWA scoring pending. No reported seizures overnight. Patient is waking up this morning and he is alert and oriented x3 to person place and time. Patient denies having any abdominal pain at the moment. He is just feeling very tired. We will keep the patient in the ICU. Continue to wean down or wean off Precedex drip as tolerated. Continue scheduled Ativan IV. We will start the patient on clear liquid diet and will advance as tolerated. Continue CIWA protocol. Continue to provide narcotics as needed for abdominal pain due to alcoholic pancreatitis. Pending physical therapy evaluation and treatment. Pending field nurse case manager consult for alcohol rehab referral. Constitutional Vitals: Vital Signs Temp Pulse Resp BP Pulse Ox O2 Del Method O2 Flow Rate 36.8 C 89 34 H 123/88 94 2 09/10/22 08:01 09/10/22 10:01 09/10/22 10:01 09/10/22 10:01 09/10/22 10:01 09/10/22 10:01 09/10/22 10:01 Period Temp Pulse Resp BP Sys/Esquivel Pulse Ox O2 Del Method O2 Flow Rate Last 24 Hr 36.8 C-38.1 C 85-101 26-43 96-144/72-113 93-96 Nasal Cannula- Nasal Cannula 1-2 Intake and Output 09/09/22 09/10/22 09/10/22 19:59 03:59 11:59 Intake Total 196 172 156 Output Total 425 562 704 Balance -229 -390 -548 Weight 85.91 kg Intake & Output: Intake & Output 09/09/22 09/10/22 09/10/22 19:59 03:59 11:59 Intake Total 196 172 156 Output Total 425 562 704 Balance -229 -390 -548 Weight 85.91 kg Intake: IV 196 172 156 Precedex 400 Mcg/100 ml 196 172 156 Dextrose 400 Mcg In Premix 1 Bag @ 0.2 MCG/KG/HR 4.105 mls/ hr IV .Q24H [facility] Rx#:[id number] Oral 0 0 Output: Urine Catheter Amount 125 550 639 Void Amount 300 12 65 Other: Urine Appearance Clear Clear Clear Uretheral (Berry) Clear Clear Urine Color Light Amanda Bright Yellow Dark Yellow Uretheral (Berry) Light Amanda Dark Yellow Urine Odor Normal Normal General appearance: disheveled and no acute distress Head Head exam: Present atraumatic and normal inspection Eye Eye exam: Present normal appearance ENT ENT exam: Present mucous membranes moist, normal exam and normal external ear exam Neck Neck exam: Present normal inspection Respiratory Respiratory exam: Present normal respiratory exam Cardiovascular Cardiovascular exam: Present normal rate and rhythm GI/Abdominal GI/Abdominal exam: Present normal bowel sounds Back Exam Back exam: Present normal inspection Neurological Exam Neurological exam: Present alert and oriented X3 Skin Skin exam: Present intact and warm OBJ DATA Labs CBC & Chem 7: 09/10/22 05:26 09/09/22 08:50 Labs: Abnormal Lab Results 09/10/22 09/10/22 09/10/22 05:26 05:26 05:26 WBC 11.5 H 11.6 H RBC 3.50 L 3.45 L Hgb 12.1 L 12.1 L Hct 35.8 L 35.3 L MCV 102.3 H 102.3 H MCH 34.6 H 35.1 H MCHC Plt Count 86 L 89 L Immature Gran % (Auto) 1.3 H Neut % (Auto) 79.7 H Lymph % (Auto) 10.6 L Lymph # (Auto) 1.23 L Lymphocytes % 7 L Immature Gran # 0.15 H Absolute Neutrophils 9.24 H Platelet Estimate Decreased A RBC Morphology Abnormal A Macrocytosis 1+ A POC pH POC pCO2 POC pO2 Sodium Chloride Carbon Dioxide Anion Gap BUN Glucose Phosphorus 1.7 L Magnesium 1.5 L Total Bilirubin AST Urine Glucose (UA) Urine Occult Blood Urine Mucus 09/09/22 09/09/22 09/09/22 08:50 08:50 08:45 WBC 11.1 H RBC 3.44 L Hgb 12.1 L Hct 34.2 L MCV MCH 35.2 H MCHC Plt Count 97 L Immature Gran % (Auto) 2.5 H Neut % (Auto) 81.7 H Lymph % (Auto) 8.9 L Lymph # (Auto) 0.99 L Lymphocytes % Immature Gran # 0.28 H Absolute Neutrophils 9.11 H Platelet Estimate RBC Morphology Macrocytosis POC pH 7.49 H POC pCO2 30.8 L POC pO2 69 L Sodium 130 L Chloride 95 L Carbon Dioxide Anion Gap BUN Glucose 115 H Phosphorus Magnesium Total Bilirubin AST Urine Glucose (UA) Urine Occult Blood Urine Mucus 09/09/22 09/09/22 09/08/22 05:53 05:53 22:58 WBC RBC 3.38 L Hgb 12.0 L Hct 33.6 L MCV MCH 35.5 H MCHC Plt Count 93 L Immature Gran % (Auto) Neut % (Auto) Lymph % (Auto) Lymph # (Auto) Lymphocytes % 13 L Immature Gran # Absolute Neutrophils Platelet Estimate Decreased A RBC Morphology Macrocytosis POC pH POC pCO2 POC pO2 Sodium Chloride Carbon Dioxide Anion Gap BUN Glucose Phosphorus 1.5 L Magnesium 1.0 L Total Bilirubin AST Urine Glucose (UA) 500 A Urine Occult Blood Trace-intact A Urine Mucus Few A 09/08/22 09/08/22 02:21 02:20 WBC 11.1 H RBC 3.78 L Hgb 13.2 L Hct 36.5 L MCV MCH 34.9 H MCHC 36.2 H Plt Count Immature Gran % (Auto) Neut % (Auto) 84.5 H Lymph % (Auto) 6.8 L Lymph # (Auto) 0.75 L Lymphocytes % Immature Gran # 0.06 H Absolute Neutrophils 9.35 H Platelet Estimate RBC Morphology Macrocytosis POC pH POC pCO2 POC pO2 Sodium 132 L Chloride 93 L Carbon Dioxide 20 L Anion Gap 19.0 H BUN 21 H Glucose 198 H Phosphorus Magnesium Total Bilirubin 1.8 H AST 58 H Urine Glucose (UA) Urine Occult Blood Urine Mucus Meds: Medications Acetaminophen (Acetaminophen 325 Mg Tablet) 650 mg PO Q6HP PRN; Protocol PRN Reason: Per Pain Protocol/Fever > 101 Al Hydrox/Mg Hydrox/Simethicone (Mag Hydrox/Al Hydrox/Simeth 30 Ml Oral.Susp) 30 ml PO Q4-6HP PRN PRN Reason: Dyspepsia Last Admin: 09/08/22 14:41 Dose: 30 ml Albuterol/Ipratropium (Ipratropium/Albuterol 3 Ml Ampul.Neb) 3 ml NEB Q4HRT PRN PRN Reason: Wheezing Albuterol/Ipratropium (Ipratropium/Albuterol 3 Ml Ampul.Neb) 3 ml NEB ONCE PRN PRN Reason: Shortness Of Breath Cetirizine HCl (Cetirizine 10 Mg Tablet) 10 mg PO BID DEMOND Last Admin: 09/09/22 19:32 Dose: Not Given Clonidine HCl (Clonidine Hcl 0.1 Mg Tablet) 0.1 mg PO Q4HP PRN PRN Reason: ALC Last Admin: 09/08/22 16:27 Dose: 0.1 mg Docusate Sodium (Docusate Sodium 100 Mg Capsule) 100 mg PO BID [facility] Last Admin: 09/10/22 09:12 Dose: Not Given Enoxaparin Sodium (Enoxaparin 40 Mg/0.4 Ml Syringe) 40 mg SQ DAILY [facility] Last Admin: 09/10/22 08:05 Dose: 40 mg Folic Acid (Folic Acid 1 Mg Tablet) 1 mg PO DAILY [facility] Last Admin: 09/09/22 09:47 Dose: Not Given Guaifenesin (Guaifenesin 600 Mg Tab.Sr.12h) 600 mg PO BIDP PRN PRN Reason: Allergic Symptoms Haloperidol Lactate (Haloperidol Lactate 5 Mg/Ml Vial) 0.5 mg IV Q2HP PRN PRN Reason: Alcohol Withdrawal/Assess CIWA Last Admin: 09/09/22 08:56 Dose: 0.5 mg Hydralazine HCl (Hydralazine 20 Mg/Ml Vial) 10 mg IV Q4-6HP PRN PRN Reason: Hypertension Last Admin: 09/08/22 17:33 Dose: 10 mg Hydromorphone HCl (Hydromorphone 0.5 Mg/0.5 Ml Syringe) 0.5 mg IV Q2HP PRN; Protocol PRN Reason: Per Pain Protocol Last Admin: 09/08/22 23:36 Dose: 0.5 mg Hydroxyzine HCl (Hydroxyzine 25 Mg Tablet) 0 mg PO Q4HP PRN PRN Reason: Anxiety/Agitation Dexmedetomidine HCl 400 mcg/ (Premix) 100 mls @ 4.105 mls/hr IV .Q24H [facility]; Protocol Last Titration: 09/10/22 10:00 Dose: 0 mcg/kg/hr, 0 mls/hr Magnesium Sulfate 8.12 meq/ (Dextrose) 52 mls @ 52 mls/hr IV ONCE ONE Stop: 09/10/22 11:59 Iron Carb/Multivit/[place]/Folic Acid (Multivit,Ther Iron,Ca,Fa & Min 1 Tablet) 1 tab PO DAILY [facility] Last Admin: 09/09/22 09:47 Dose: Not Given Lactulose (Lactulose 20 Gm/30 Ml Oral.Radha) 10 gm PO DAILYP PRN PRN Reason: Constipation Lisinopril (Lisinopril 20 Mg Tablet) 30 mg PO QAM [facility] Last Admin: 09/09/22 09:47 Dose: Not Given Lorazepam (Lorazepam 2 Mg/Ml Vial) 1 mg IV Q1HP PRN PRN Reason: Seizure Activity Last Admin: 09/09/22 01:09 Dose: 1 mg Lorazepam (Lorazepam 1 Mg Tablet) 2 mg PO Q2HP PRN PRN Reason: CIWA-A >6 or HR >100 Lorazepam (Lorazepam 2 Mg/Ml Vial) 0 mg IV UD PRN; Protocol PRN Reason: Alcohol Withdrawal/Assess CIWA Last Admin: 09/09/22 11:51 Dose: 2 mg Lorazepam (Lorazepam 2 Mg/Ml Vial) 2 mg IV Q4H [facility] Last Admin: 09/10/22 08:05 Dose: 2 mg Metoprolol Tartrate (Metoprolol Tartrate 25 Mg Tablet) 25 mg PO QDAY [facility] Last Admin: 09/09/22 09:47 Dose: Not Given Ondansetron HCl (Ondansetron 4 Mg/2 Ml Vial) 4 mg IV Q4HP PRN; Protocol PRN Reason: Nausea And Vomiting Oxycodone HCl (Oxycodone Hcl 5 Mg Tablet) 10 mg PO Q4HP PRN; Protocol PRN Reason: Per Pain Protocol Last Admin: 09/09/22 00:35 Dose: 10 mg Pantoprazole Sodium (Pantoprazole 40 Mg Vial) 40 mg IV QAMAC [facility] Last Admin: 09/10/22 07:17 Dose: 40 mg Diclofenac Sodium 50 Mg Tablet,Delayed Release 1 dose PO TID [facility] Last Admin: 09/10/22 09:12 Dose: Not Given Pregabalin (Pregabalin 100 Mg Capsule) 50 mg PO BID [facility] Last Admin: 09/09/22 19:32 Dose: Not Given Senna (Sennosides 1 Tablet) 2 tab PO HSP PRN PRN Reason: Constipation Sodium Chloride (0.9 % Sodium Chloride 10 Ml Syringe) 10 ml IV Q8 [facility] Last Admin: 09/10/22 05:16 Dose: 10 ml Thiamine HCl (Thiamine 100 Mg Tablet) 100 mg PO QDAY [facility] Last Admin: 09/09/22 09:47 Dose: Not Given A/P Assessment and plan (1) Pancreatitis, alcoholic, acute: Status: Acute (2) Alcohol withdrawal delirium: Status: Acute (3) Anemia, hyperchromic: Status: Acute (4) Steatohepatitis, alcoholic: Status: Acute (5) Hypertension: Status: Chronic (6) Hypomagnesemia: Status: Acute Narrative A/P Narrative: Assessment and Plans: 1. 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 Alcohol withdrawal/delirium tremens: CIWA protocol with Ativan (PO if tolerates, IV if cannot tolerate PO) Physical restraint just removed. Continue Precedex drips, continue to wean down and wean off as tolerated Continue scheduled Ativan IV Ativan IV PRN seizure activities Folic acid Multivitamins Thiamine associate property manager consult for alcohol rehab referral Physical therapy evaluation and treatment 3. Essential hypertension: Lisinopril Metoprolol Clonidine 4. Alcoholic steatohepatitis: Continue to monitor 5. Anemia, hyperchromic: cbc w/ auto diff in the morning to trend H/H 6. Hypomagnesemia: MgSO4 IV replacement Daily Mg level to trend serum level GI ppx: IV Protonix DVT ppx: Lovenox Code status: Full Prognosis: extremely guarded Disposition: inpatient ICU; PT Critical Care Time: 60min Time Spent With Patient Time: Total time spent is greater than 50% in coordination of care (as documented) at patient's floor/unit and/or counseling patient: Total time spent with greater than 50% in coordination of care (as documented) at patient's floor/unit and/or counseling patient:: 50 - 70 minutes Critical Care Time: Yes Total Critical Care Time: 60 QUALITY Restraints Restraint In Place: No
[2022-09-10 11:45] LABS: ALT/SGPT 11 U/L (<40); AST/SGOT 33 U/L (<40); Albumin 2.8 gm/dL (3.2-5.2); Albumin/Globulin Ratio 0.8 (1.0-2.3); Alkaline Phosphatase 66 U/L (39-117); Bilirubin,Total 0.8 mg/dL (0.1-1.0); Blood Urea Nitrogen 10 mg/dL (6-20); Calcium 8.8 mg/dL (8.6-10.4); Carbon Dioxide 22 mmol/L (22-30); Chloride 94 mmol/L (96-108); Globulin 3.6 gm/dL (2.2-3.7); Glomerular Filtration Rate 76; Glucose 111 mg/dL (70-105)
[2022-09-10] MEDS: MULTIVIT,THER IRON,CA,FA & MIN 1 TABLET PO SCH (11:49)
[2022-09-10] MEDS: FOLIC ACID 1 MG TABLET PO SCH (11:49)
[2022-09-10] MEDS: CETIRIZINE 10 MG TABLET PO SCH ×3 (11:49→20:07)
[2022-09-10] MEDS: THIAMINE 100 MG TABLET PO SCH (11:50)
[2022-09-10] MEDS: METOPROLOL TARTRATE 25 MG TABLET PO SCH ×2 (11:50→21:14)
[2022-09-10] MEDS: LISINOPRIL 20 MG TABLET PO SCH (11:50)
[2022-09-10] MEDS: PREGABALIN 100 MG CAPSULE PO SCH (12:02)
[2022-09-10] MEDS ORDERED: LIDOCAINE VISCOUS 2% 15 ML UNIT DOSE CUP PO PRN (13:14)
[2022-09-10] MEDS ORDERED: ARTIFICIAL TEARS OPHTHALMIC PRN (13:14)
[2022-09-10] MEDS ORDERED: LIDOCAINE 4% TOPICAL PRN (13:14)
[2022-09-10] MEDS ORDERED: TRIAMCINOLONE ACETONIDE 0.1% TOPICAL PRN (13:14)
[2022-09-10] MEDS ORDERED: CARBOXYMETHYLCELLULOSE SODIUM 1 EACH DROPER.GEL OU PRN (13:20)
[2022-09-10] MEDS ORDERED: KETOTIFEN FUMARATE 0.025% OU PRN (13:23)
[2022-09-10] MEDS ORDERED: DICLOFENAC SODIUM 1% TOPICAL PRN (13:24)
[2022-09-10] MEDS: LORazepam 2 MG/ML VIAL IV PRN ×3 (14:44→17:05)
[2022-09-10] MEDS: PREGABALIN 25 MG CAPSULE PO SCH ×2 (18:42→20:05)
[2022-09-10] MEDS: hydrOXYzine 25 MG TABLET PO PRN (18:43)
[2022-09-10] MEDS: cloNIDine HCL 0.1 MG TABLET PO PRN (18:43)
[2022-09-10] MEDS: HYDROmorphone 0.5 MG/0.5 ML SYRINGE IV PRN (20:04)
[2022-09-10] MEDS: CHLORHEXIDINE GLUCONATE 1 ML ORAL.SOL SWABMOUTH SCH (20:07)
[2022-09-10] MEDS: hydrALAZINE 20 MG/ML VIAL IV PRN (22:35)
[2022-09-11] MEDS: LORazepam 2 MG/ML VIAL IV SCH ×6 (04:08→23:37)
[2022-09-11] MEDS: hydrALAZINE 20 MG/ML VIAL IV PRN (04:08)
[2022-09-11] MEDS: DEXMEDETOMIDINE 400 MCG in PREMIX 1 BAG IV SCH ×2 (04:48→20:32)
[2022-09-11] MEDS: 0.9 % SODIUM CHLORIDE 10 ML SYRINGE IV SCH ×3 (05:56→20:16)
[2022-09-11] MEDS: PANTOPRAZOLE 40 MG VIAL IV SCH (07:16)
[2022-09-11 07:37] LABS: Basophils # (Auto) 0.03 K/mcL (0.00-0.30); Basophils % (Auto) 0.3 % (0.0-2.0); Eosinophils # (Auto) 0.15 K/mcL (0.00-0.70); Eosinophils % (Auto) 1.4 % (0.0-7.0); Hematocrit 32.5 % (40.1-51.0); Hemoglobin 11.1 g/dL (13.7-17.5); Lymphocytes # (Auto) 1.21 K/mcL (1.50-4.80); Lymphocytes % (Auto) 11.7 % (15.5-49.0); Mean Cell Volume 102.5 fL (80.0-100.0); Mean Corpuscular HGB Conc 34.2 g/dL (31.0-36.0); Mean Platelet Volume 10.6 fL (8.8-12.5); Monocytes # (Auto) 1.43 K/mcL (0.10-0.90); Monocytes % (Auto) 13.8 % (1.0-12.0); Neutrophils % (Auto) 72.1 % (38.0-78.0); Platelet Count 102 K/mcL (140-440); RBC 3.17 M/mcL (4.63-6.08); Red Cell Distribution Width 12.3 % (11.5-14.5); WBC 10.4 K/mcL (4.5-11.0)
[2022-09-11] MEDS: ENOXAPARIN 40 MG/0.4 ML SYRINGE SQ SCH (07:53)
[2022-09-11] MEDS: FOLIC ACID 1 MG TABLET PO SCH (07:53)
[2022-09-11] MEDS: CHLORHEXIDINE GLUCONATE 1 ML ORAL.SOL SWABMOUTH SCH ×2 (07:53→20:16)
[2022-09-11] MEDS: METOPROLOL TARTRATE 25 MG TABLET PO SCH ×2 (07:53→20:15)
[2022-09-11] MEDS: LISINOPRIL 20 MG TABLET PO SCH (07:53)
[2022-09-11] MEDS: THIAMINE 100 MG TABLET PO SCH (07:53)
[2022-09-11 08:07] LABS: ALT/SGPT 12 U/L (<40); AST/SGOT 26 U/L (<40); Albumin 2.7 gm/dL (3.2-5.2); Albumin/Globulin Ratio 0.8 (1.0-2.3); Alkaline Phosphatase 81 U/L (39-117); Bilirubin,Total 0.7 mg/dL (0.1-1.0); Blood Urea Nitrogen 10 mg/dL (6-20); Carbon Dioxide 24 mmol/L (22-30); Chloride 97 mmol/L (96-108); Globulin 3.4 gm/dL (2.2-3.7); Glomerular Filtration Rate 85; Glucose 107 mg/dL (70-105)
[2022-09-11 08:17] LABS: Band Neutrophils % 6 % (0-10); Eosinophils % (Manual) 1 % (0-7); Lymphocytes % 11 % (15-49); Macrocytosis 1+ (None Seen); Monocytes % (Manual) 12 % (1-12); Platelet Estimate DECREASED (Normal); RBC Morphology ABNORMAL (Normal); Segmented Neutrophils % 70 % (38-78)
[2022-09-11] MEDS: MULTIVIT,THER IRON,CA,FA & MIN 1 TABLET PO SCH (08:20)
[2022-09-11] MEDS: DOCUSATE SODIUM 100 MG CAPSULE PO SCH ×2 (08:20→20:16)
[2022-09-11] MEDS: CETIRIZINE 10 MG TABLET PO SCH ×2 (08:20→20:15)
[2022-09-11] MEDS: PREGABALIN 25 MG CAPSULE PO SCH ×2 (08:21→20:15)
[2022-09-11] MEDS: LIDOCAINE PATCH TOPICAL SCH (08:21)
[2022-09-11] MEDS: ATORVASTATIN 20 MG TABLET PO SCH (08:21)
[2022-09-11] MEDS: valACYclovir 500 MG TABLET PO SCH (08:42)
[2022-09-11] MEDS: LACTASE 1 TABLET PO PRN ×2 (09:18→20:17)
--- NOTE | 2022-09-11 10:49 | Internal Med Progress Note ---
SUBJECTIVE Subjective Patient information: Note initiated : 09/11/22 at 10:36 am Service Date, if different from initiated Date: [] Patient: Go Kinsey 52 y/o M admitted on 09/08/22 for upper abd pain. Chief Complaint: [] Interval history: Mr. Kinsey is a 52 year old M history of chronic alcoholism, essential hypertensions, presenting with 1 day history of acute onset abdominal pain. Patient has a history of chronic alcoholism, and according to himself, he has been drinking even more for the past month since his father . He has been drinking 0.5 L of vodka per day with last use 2 days ago on . Yesterday night he had acute onset abdominal pain, epigastric with radiations to left upper quadrant, currently graded at 8 out of 10 in intensity, constant. It is complicated by nausea, vomiting, and loose stool. In addition, he has been to both alcohol Anonymous and inpatient alcohol rehab programs back in 1995. He is currently complain of insomnia, increased hand tremors, nausea vomiting, but he denies any hallucinations, anxiety, or agitations. Vital signs significant for tachycardia and tachypnea. Labs significant for serum lipase level 3050. AST ALT 58 and 25, respectively. Total bilirubin 1.8. CT of the abdomen showing presence of severe pancreatitis. No biliary obstructions or gallstone identified. Admission requested for alcoholic pancreatitis and potential alcohol withdrawal/delirium tremens. 09/09: Patient's became very agitated and confused last night/tar heater. CIWA scor e 14. Rapid response was called, and for limb restraint were placed. Precedex drip was also started last night, and patient is to be transferred to ICU status. Rest of the subjective not obtained due to clinical situations. Chest x-ray ordered this morning showing poor variations with bilateral atelectasis. Transfer patients to ICU status. 4-limbs restrained in place. Continue Precedex drips. Add scheduled Ativan IV. Saline lock the patient to prevent fluid overloading the patient. We will make the patient n.p.o. status right now due to his mentations. Continue CIWA protocol. Continue to provide narcotics as needed for abdominal pain due to alcoholic pancreatitis. 09/10: Patient was less agitated last night compared to the night before. Currently ordered restraints are off. He still on Precedex drip. CIWA scoring pending. No reported seizures overnight. Patient is waking up this morning and he is alert and oriented x3 to person place and time. Patient denies having any abdominal pain at the moment. He is just feeling very tired. We will keep the patient in the ICU. Continue to wean down or wean off Precedex drip as tolerated. Continue scheduled Ativan IV. We will start the patient on clear liquid diet and will advance as tolerated. Continue CIWA protocol. Continue to provide narcotics as needed for abdominal pain due to alcoholic pancreatitis. Pending physical therapy evaluation and treatment. Pending immigration case worker consult for alcohol rehab referral. 09/11: CIWA score 16 this morning. Restraint was not initiated overnight. Precedex drip was being switched off earlier this morning. No seizures activities documented overnight. Patient's had a good sleep denies any insomnia. Negative for increased hand tremors. Patient denies any anxiety or agitations. He is still complain of mild GI upset with nausea but denies any vomiting and able to tolerate the breakfast with regular diet. He denies any visual or auditory hallucinations. Patient denies any abdominal pain. We will keep the patient in the ICU. Continue CIWA protocol with Ativan PO. Continue scheduled Ativan IV. Continue to provide narcotics as needed for abdominal pain due to alcoholic pancreatitis. Pending physical therapy evaluation and treatment. Pending immigration case worker consult for alcohol rehab referral. Constitutional Vitals: Vital Signs Temp Pulse Resp BP Pulse Ox O2 Del Method O2 Flow Rate 36.1 C L 91 H 27 H 117/86 99 2 09/11/22 08:01 09/11/22 10:04 09/11/22 10:04 09/11/22 10:01 09/11/22 10:04 09/11/22 10:01 09/11/22 06:01 Period Temp Pulse Resp BP Sys/Esquivel Pulse Ox O2 Del Method O2 Flow Rate Last 24 Hr 35.8 C-37.9 C 83-113 20-41 113-178/69-120 91-100 Nasal Cannula-Room Air 2-2 Intake and Output 09/10/22 09/11/22 09/11/22 19:59 03:59 11:59 Intake Total 652 170 733 Output Total 485 2200 324 Balance 167 409 Weight 85.91 kg 85.91 kg Intake & Output: Intake & Output 09/10/22 09/11/22 09/11/22 19:59 03:59 11:59 Intake Total 652 170 733 Output Total 485 2200 324 Balance 167 -2029 409 Weight 85.91 kg 85.91 kg Intake: IV 52 170 13 Precedex 400 Mcg/100 ml 0 170 13 Dextrose 400 Mcg In Premix 1 Bag @ 0.2 MCG/KG/HR 4.105 mls/ hr IV .Q24H [facility] Rx#:[id number] Magnesium Sulfate 8.12 Meq In 52 Dextrose 5% in Water 50 ml @ 52 mls/hr IV ONCE ONE Rx#: [id number] Oral 600 720 Output: Urine Catheter Amount 443 2200 324 Void Amount 42 Other: Meal Dinner Breakfast Percent of Meal Consumed 50% 50% Urine Appearance Clear Clear Clear Uretheral (Berry) Clear Clear Clear Urine Color Dark Yellow Bright Yellow Dark Yellow Uretheral (Berry) Dark Yellow Bright Yellow Light Amanda Head Head exam: Present atraumatic and normal inspection Eye Eye exam: Present normal appearance ENT ENT exam: Present mucous membranes moist, normal exam and normal external ear exam Neck Neck exam: Present normal inspection Respiratory Respiratory exam: Present normal respiratory exam Cardiovascular Cardiovascular exam: Present normal rate and rhythm GI/Abdominal GI/Abdominal exam: Present normal bowel sounds Back Exam Back exam: Present normal inspection Neurological Exam Neurological exam: Present alert and oriented X3 Skin Skin exam: Present intact and warm OBJ DATA Labs CBC & Chem 7: 09/11/22 05:50 09/11/22 05:50 Labs: Abnormal Lab Results 09/11/22 09/11/22 09/11/22 05:50 05:50 05:50 WBC RBC 3.17 L Hgb 11.1 L Hct 32.5 L MCV 102.5 H MCH 35.0 H Plt Count 102 L Immature Gran % (Auto) 0.7 H Neut % (Auto) Lymph % (Auto) 11.7 L Elmore % (Auto) 13.8 H Lymph # (Auto) 1.21 L Elmore # (Auto) 1.43 H Lymphocytes % 11 L Immature Gran # 0.07 H Absolute Neutrophils Platelet Estimate Decreased A RBC Morphology Abnormal A Macrocytosis 1+ A POC pH POC pCO2 POC pO2 Sodium Chloride Glucose 107 H Phosphorus 2.0 L Magnesium Albumin 2.7 L Albumin/Globulin Ratio 0.8 L Urine Glucose (UA) Urine Occult Blood Urine Mucus 09/10/22 09/10/22 09/10/22 05:30 05:26 05:26 WBC 11.5 H RBC 3.50 L Hgb 12.1 L Hct 35.8 L MCV 102.3 H MCH 34.6 H Plt Count 86 L Immature Gran % (Auto) Neut % (Auto) Lymph % (Auto) Elmore % (Auto) Lymph # (Auto) Elmore # (Auto) Lymphocytes % 7 L Immature Gran # Absolute Neutrophils Platelet Estimate Decreased A RBC Morphology Abnormal A Macrocytosis 1+ A POC pH POC pCO2 POC pO2 Sodium 129 L Chloride 94 L Glucose 111 H Phosphorus 1.7 L Magnesium 1.5 L Albumin 2.8 L Albumin/Globulin Ratio 0.8 L Urine Glucose (UA) Urine Occult Blood Urine Mucus 09/10/22 09/09/22 09/09/22 05:26 08:50 08:50 WBC 11.6 H 11.1 H RBC 3.45 L 3.44 L Hgb 12.1 L 12.1 L Hct 35.3 L 34.2 L MCV 102.3 H MCH 35.1 H 35.2 H Plt Count 89 L 97 L Immature Gran % (Auto) 1.3 H 2.5 H Neut % (Auto) 79.7 H 81.7 H Lymph % (Auto) 10.6 L 8.9 L Elmore % (Auto) Lymph # (Auto) 1.23 L 0.99 L Elmore # (Auto) Lymphocytes % Immature Gran # 0.15 H 0.28 H Absolute Neutrophils 9.24 H 9.11 H Platelet Estimate RBC Morphology Macrocytosis POC pH POC pCO2 POC pO2 Sodium 130 L Chloride 95 L Glucose 115 H Phosphorus Magnesium Albumin Albumin/Globulin Ratio Urine Glucose (UA) Urine Occult Blood Urine Mucus 09/09/22 09/09/22 09/09/22 08:45 05:53 05:53 WBC RBC 3.38 L Hgb 12.0 L Hct 33.6 L MCV MCH 35.5 H Plt Count 93 L Immature Gran % (Auto) Neut % (Auto) Lymph % (Auto) Elmore % (Auto) Lymph # (Auto) Elmore # (Auto) Lymphocytes % 13 L Immature Gran # Absolute Neutrophils Platelet Estimate Decreased A RBC Morphology Macrocytosis POC pH 7.49 H POC pCO2 30.8 L POC pO2 69 L Sodium Chloride Glucose Phosphorus 1.5 L Magnesium 1.0 L Albumin Albumin/Globulin Ratio Urine Glucose (UA) Urine Occult Blood Urine Mucus 09/08/22 22:58 WBC RBC Hgb Hct MCV MCH Plt Count Immature Gran % (Auto) Neut % (Auto) Lymph % (Auto) Elmore % (Auto) Lymph # (Auto) Elmore # (Auto) Lymphocytes % Immature Gran # Absolute Neutrophils Platelet Estimate RBC Morphology Macrocytosis POC pH POC pCO2 POC pO2 Sodium Chloride Glucose Phosphorus Magnesium Albumin Albumin/Globulin Ratio Urine Glucose (UA) 500 A Urine Occult Blood Trace-intact A Urine Mucus Few A Meds: Medications Acetaminophen (Acetaminophen 325 Mg Tablet) 650 mg PO Q6HP PRN; Protocol PRN Reason: Per Pain Protocol/Fever > 101 Al Hydrox/Mg Hydrox/Simethicone (Mag Hydrox/Al Hydrox/Simeth 30 Ml Oral.Susp) 30 ml PO Q4-6HP PRN PRN Reason: Dyspepsia Last Admin: 09/08/22 14:41 Dose: 30 ml Albuterol/Ipratropium (Ipratropium/Albuterol 3 Ml Ampul.Neb) 3 ml NEB Q4HRT PRN PRN Reason: Wheezing Albuterol/Ipratropium (Ipratropium/Albuterol 3 Ml Ampul.Neb) 3 ml NEB ONCE PRN PRN Reason: Shortness Of Breath Artificial Tears (Carboxymethylcellulose Sodium 1 Each Droper.Gel) 1 each OU BIDP PRN PRN Reason: Dry Eye(S) Atorvastatin Calcium (Atorvastatin 20 Mg Tablet) 20 mg PO QDAY [facility] Last Admin: 09/11/22 08:21 Dose: 20 mg Cetirizine HCl (Cetirizine 10 Mg Tablet) 10 mg PO BID [facility] Last Admin: 09/11/22 08:20 Dose: 10 mg Chlorhexidine Gluconate (Chlorhexidine Gluconate 1 Ml Oral.Radha) 15 ml SWABMOUTH BID [facility] Last Admin: 09/11/22 07:53 Dose: 15 ml Clonidine HCl (Clonidine Hcl 0.1 Mg Tablet) 0.1 mg PO Q4HP PRN PRN Reason: ALC Last Admin: 09/10/22 18:43 Dose: 0.1 mg Docusate Sodium (Docusate Sodium 100 Mg Capsule) 100 mg PO BID [facility] Last Admin: 09/11/22 08:20 Dose: 100 mg Enoxaparin Sodium (Enoxaparin 40 Mg/0.4 Ml Syringe) 40 mg SQ DAILY [facility] Last Admin: 09/11/22 07:53 Dose: 40 mg Folic Acid (Folic Acid 1 Mg Tablet) 1 mg PO DAILY [facility] Last Admin: 09/11/22 07:53 Dose: 1 mg Guaifenesin (Guaifenesin 600 Mg Tab.Sr.12h) 600 mg PO BIDP PRN PRN Reason: Allergic Symptoms Haloperidol Lactate (Haloperidol Lactate 5 Mg/Ml Vial) 0.5 mg IV Q2HP PRN PRN Reason: Alcohol Withdrawal/Assess CIWA Last Admin: 09/09/22 08:56 Dose: 0.5 mg Hydralazine HCl (Hydralazine 20 Mg/Ml Vial) 10 mg IV Q4-6HP PRN PRN Reason: Hypertension Last Admin: 09/11/22 04:08 Dose: 10 mg Hydromorphone HCl (Hydromorphone 0.5 Mg/0.5 Ml Syringe) 0.5 mg IV Q2HP PRN; Protocol PRN Reason: Per Pain Protocol Last Admin: 09/10/22 20:04 Dose: 0.5 mg Hydroxyzine HCl (Hydroxyzine 25 Mg Tablet) 0 mg PO Q4HP PRN PRN Reason: Anxiety/Agitation Last Admin: 09/10/22 18:43 Dose: 50 mg Dexmedetomidine HCl 400 mcg/ (Premix) 100 mls @ 4.105 mls/hr IV .Q24H [facility]; Protocol Last Titration: 09/11/22 05:55 Dose: 0 mcg/kg/hr, 0 mls/hr Iron Carb/Multivit/Hope/Folic Acid (Multivit,Ther Iron,Ca,Fa & Min 1 Tablet) 1 tab PO DAILY [facility] Last Admin: 09/11/22 08:20 Dose: 1 tab Lactase (Lactase 1 Tablet) 1 tab PO TIDP PRN PRN Reason: Indigestion Last Admin: 09/11/22 09:18 Dose: 1 tab Lactulose (Lactulose 20 Gm/30 Ml Oral.Radha) 10 gm PO DAILYP PRN PRN Reason: Constipation Lidocaine (Lidocaine Patch) 1 patch TOPICAL QDAY [facility] Last Admin: 09/11/22 08:21 Dose: 1 patch Lidocaine HCl (Lidocaine Viscous 2% 15 Ml Unit Dose Cup) 5 ml PO TIDP PRN PRN Reason: Pain Lisinopril (Lisinopril 20 Mg Tablet) 30 mg PO QAM [facility] Last Admin: 09/11/22 07:53 Dose: 30 mg Lorazepam (Lorazepam 2 Mg/Ml Vial) 1 mg IV Q1HP PRN PRN Reason: Seizure Activity Last Admin: 09/09/22 01:09 Dose: 1 mg Lorazepam (Lorazepam 1 Mg Tablet) 2 mg PO Q2HP PRN PRN Reason: CIWA-A >6 or HR >100 Lorazepam (Lorazepam 2 Mg/Ml Vial) 0 mg IV UD PRN; Protocol PRN Reason: Alcohol Withdrawal/Assess CIWA Last Admin: 09/10/22 17:05 Dose: 3 mg Lorazepam (Lorazepam 2 Mg/Ml Vial) 2 mg IV Q4H [facility] Last Admin: 09/11/22 07:46 Dose: 2 mg Metoprolol Tartrate (Metoprolol Tartrate 25 Mg Tablet) 50 mg PO BID [facility] Last Admin: 09/11/22 07:53 Dose: 50 mg Ondansetron HCl (Ondansetron 4 Mg/2 Ml Vial) 4 mg IV Q4HP PRN; Protocol PRN Reason: Nausea And Vomiting Oxycodone HCl (Oxycodone Hcl 5 Mg Tablet) 10 mg PO Q4HP PRN; Protocol PRN Reason: Per Pain Protocol Last Admin: 09/09/22 00:35 Dose: 10 mg Pantoprazole Sodium (Pantoprazole 40 Mg Vial) 40 mg IV QAMAC [facility] Last Admin: 09/11/22 07:16 Dose: 40 mg Diclofenac Sodium [ Arthritis Pain ( Diclofenac)] 1% Gel 1 dose TOPICAL BIDP PRN PRN Reason: Pain Ketotifen Fumarate 0 (.025 % Drops) 1 dose OU BIDP PRN PRN Reason: Allergy Symptoms Pregabalin (Pregabalin 25 Mg Capsule) 50 mg PO BID [facility] Last Admin: 09/11/22 08:21 Dose: 50 mg Senna (Sennosides 1 Tablet) 2 tab PO HSP PRN PRN Reason: Constipation Sodium Chloride (0.9 % Sodium Chloride 10 Ml Syringe) 10 ml IV Q8 [facility] Last Admin: 09/11/22 05:56 Dose: 10 ml Thiamine HCl (Thiamine 100 Mg Tablet) 100 mg PO QDAY [facility] Last Admin: 09/11/22 07:53 Dose: 100 mg Valacyclovir HCl (Valacyclovir 500 Mg Tablet) 500 mg PO DAILY [facility]; Protocol Last Admin: 09/11/22 08:42 Dose: 500 mg A/P Assessment and plan (1) Pancreatitis, alcoholic, acute: Status: Acute (2) Alcohol withdrawal delirium: Status: Acute (3) Anemia, hyperchromic: Status: Acute (4) Steatohepatitis, alcoholic: Status: Acute (5) Hypertension: Status: Chronic (6) Hypomagnesemia: Status: Acute Narrative A/P Narrative: Assessment and Plans: 1. Acute alcoholic pancreatitis: Inpatient ICU with telemetry Regular diet Saline lock the patient to prevent fluid overloading the patient Tylenol PRN mild pain Oxycodone PRN moderate pain Dilaudid IV PRN severe pain Zofran IV PRN nausea vomiting Spanish Translator patient about alcoholism, see below 2. Alcohol withdrawal/delirium tremens: CIWA protocol with Ativan (PO if tolerates, IV if cannot tolerate PO) Continue scheduled Ativan IV Ativan IV PRN seizure activities Folic acid Multivitamins Thiamine manager of training and development consult for alcohol rehab referral Physical therapy evaluation and treatment 3. Essential hypertension: Lisinopril Metoprolol Clonidine 4. Alcoholic steatohepatitis: Continue to monitor 5. Anemia, hyperchromic: cbc w/ auto diff in the morning to trend H/H 6. Hypomagnesemia: MgSO4 IV replacement Daily Mg level to trend serum level GI ppx: Protonix PO DVT ppx: Lovenox Code status: Full Prognosis: Guarded Disposition: inpatient ICU; PT Critical Care Time: 45min Time Spent With Patient Time: Total time spent is greater than 50% in coordination of care (as documented) at patient's floor/unit and/or counseling patient: Total time spent with greater than 50% in coordination of care (as documented) at patient's floor/unit and/or counseling patient:: 25 - 35 minutes Critical Care Time: Yes Total Critical Care Time: 45 QUALITY Restraints Restraint In Place: No
[2022-09-11] MEDS: IPRATROPIUM/ALBUTEROL 3 ML AMPUL.NEB NEB PRN (16:19)
[2022-09-11] MEDS: oxyCODONE HCL 5 MG TABLET PO PRN (18:57)
[2022-09-11] MEDS: ACETAMINOPHEN 325 MG TABLET PO PRN (18:58)
[2022-09-11] MEDS: hydrOXYzine 25 MG TABLET PO PRN (19:10)
[2022-09-11] MEDS: cloNIDine HCL 0.1 MG TABLET PO PRN (19:10)
[2022-09-11] MEDS: PANTOPRAZOLE 40 MG TABLET PO SCH (20:16)
[2022-09-12] MEDS: LORazepam 2 MG/ML VIAL IV SCH ×2 (04:02→08:48)
[2022-09-12] MEDS: 0.9 % SODIUM CHLORIDE 10 ML SYRINGE IV SCH ×3 (04:02→20:25)
[2022-09-12] MEDS: hydrALAZINE 20 MG/ML VIAL IV PRN (04:02)
[2022-09-12 07:03] LABS: Basophils # (Auto) 0.05 K/mcL (0.00-0.30); Basophils % (Auto) 0.5 % (0.0-2.0); Eosinophils # (Auto) 0.11 K/mcL (0.00-0.70); Eosinophils % (Auto) 1.1 % (0.0-7.0); Hematocrit 30.1 % (40.1-51.0); Hemoglobin 10.6 g/dL (13.7-17.5); Lymphocytes % (Auto) 14.8 % (15.5-49.0); Mean Corpuscular HGB Conc 35.2 g/dL (31.0-36.0); Monocytes # (Auto) 1.99 K/mcL (0.10-0.90); Monocytes % (Auto) 19.6 % (1.0-12.0); Platelet Count 141 K/mcL (140-440); RBC 2.98 M/mcL (4.63-6.08); Red Cell Distribution Width 12.3 % (11.5-14.5); WBC 10.2 K/mcL (4.5-11.0)
[2022-09-12 07:30] LABS: ALT/SGPT 38 U/L (<40); AST/SGOT 76 U/L (<40); Albumin/Globulin Ratio 0.9 (1.0-2.3); Alkaline Phosphatase 92 U/L (39-117); Bilirubin,Total 0.8 mg/dL (0.1-1.0); Blood Urea Nitrogen 8 mg/dL (6-20); Calcium 8.9 mg/dL (8.6-10.4); Carbon Dioxide 27 mmol/L (22-30); Chloride 95 mmol/L (96-108); Globulin 3.5 gm/dL (2.2-3.7); Glomerular Filtration Rate 76; Glucose 156 mg/dL (70-105)
[2022-09-12 07:40] LABS: Phosphorous 1.1 mg/dL (2.5-4.5)
[2022-09-12] MEDS: LACTASE 1 TABLET PO PRN (08:17)
--- NOTE | 2022-09-12 08:44 | Internal Med Progress Note ---
SUBJECTIVE Subjective Patient information: Note initiated : 09/12/22 at 8:41 am Service Date, if different from initiated Date: [] Patient: Go Kinsey 52 y/o M admitted on 09/08/22 for upper abd pain. Chief Complaint: [] Interval history: Mr. Kinsey is a 52 year old M history of chronic alcoholism, essential hypertensions, presenting with 1 day history of acute onset abdominal pain. Patient has a history of chronic alcoholism, and according to himself, he has been drinking even more for the past month since his father . He has been drinking 0.5 L of vodka per day with last use 2 days ago on . Yesterday night he had acute onset abdominal pain, epigastric with radiations to left upper quadrant, currently graded at 8 out of 10 in intensity, constant. It is complicated by nausea, vomiting, and loose stool. In addition, he has been to both alcohol Anonymous and inpatient alcohol rehab programs back in 1995. He is currently complain of insomnia, increased hand tremors, nausea vomiting, but he denies any hallucinations, anxiety, or agitations. Vital signs significant for tachycardia and tachypnea. Labs significant for serum lipase level 3050. AST ALT 58 and 25, respectively. Total bilirubin 1.8. CT of the abdomen showing presence of severe pancreatitis. No biliary obstructions or gallstone identified. Admission requested for alcoholic pancreatitis and potential alcohol withdrawal/delirium tremens. 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 CIWA score 14. Rapid response was called, and for limb restraint were placed. Precedex drip was also started last night, and patient is to be transferred to ICU status. Rest of the subjective not obtained due to clinical situations. Chest x-ray ordered this morning showing poor variations with bilateral a telectasis. Transfer patients to ICU status. 4-limbs restrained in place. Continue Precedex drips. Add scheduled Ativan IV. Saline lock the patient to prevent fluid overloading the patient. We will make the patient n.p.o. status right now due to his mentations. Continue CIWA protocol. Continue to provide narcotics as needed for abdominal pain due to alcoholic pancreatitis. 09/10: Patient was less agitated last night compared to the night before. Currently ordered restraints are off. He still on Precedex drip. CIWA scoring pending. No reported seizures overnight. Patient is waking up this morning and he is alert and oriented x3 to person place and time. Patient denies having any abdominal pain at the moment. He is just feeling very tired. We will keep the patient in the ICU. Continue to wean down or wean off Precedex drip as tolerated. Continue scheduled Ativan IV. We will start the patient on clear liquid diet and will advance as tolerated. Continue CIWA protocol. Continue to provide narcotics as needed for abdominal pain due to alcoholic pancreatitis. Pending physical therapy evaluation and treatment. Pending foster care case manager consult for alcohol rehab referral. 09/11: CIWA score 16 this morning. Restraint was not initiated overnight. Precedex drip was being switched off earlier this morning. No seizures activities documented overnight. Patient's had a good sleep denies any insomnia. Negative for increased hand tremors. Patient denies any anxiety or agitations. He is still complain of mild GI upset with nausea but denies any vomiting and able to tolerate the breakfast with regular diet. He denies any visual or auditory hallucinations. Patient denies any abdominal pain. We will keep the patient in the ICU. Continue CIWA protocol with Ativan PO. Continue scheduled Ativan IV. Continue to provide narcotics as needed for abdominal pain due to alcoholic pancreatitis. Pending physical therapy evaluation and treatment. Pending foster care case manager consult for alcohol rehab referral. 09/12: CIWA score overnight at this morning 10, 8, 5, respectively. Restraint was not initiated. Precedex drip has been off. Patient denies any visual or auditory hallucinations, stating that he only sees floaters. Denies anxiety or agitations. Denies nausea or vomiting. No increased hand tremors. Urine output is on the low end, currently at around 20 cc/h. Improving appetite. Denies any abdominal pain. We will transfer the patient from ICU to PCU. d/c scheduled Ativan IV. Continue CIWA protocol with Ativan PO. Continue to provide narcotics as needed for abdominal pain due to alcoholic pancreatitis. Pending physical therapy evaluation and treatment. Pending foster care case manager consult for alcohol rehab referral. Constitutional Vitals: Vital Signs Temp Pulse Resp BP Pulse Ox O2 Del Method O2 Flow Rate 37.0 C 115 H 24 H 172/99 92 2 09/12/22 08:28 09/12/22 08:28 09/12/22 08:28 09/12/22 08:28 09/12/22 08:28 09/12/22 08:28 09/11/22 06:01 Period Temp Pulse Resp BP Sys/Esquivel Pulse Ox O2 Del Method O2 Flow Rate Last 24 Hr 36.5 C-38.3 C 88-121 14-37 100-179/63-115 92-100 Room Air-Room Air Intake and Output 09/11/22 09/12/22 09/12/22 19:59 03:59 11:59 Intake Total 680 480 200 Output Total 224 260 703 Balance 456 220 -503 Weight 84.686 kg Intake & Output: Intake & Output 09/11/22 09/12/22 09/12/22 19:59 03:59 11:59 Intake Total 680 480 200 Output Total 224 260 703 Balance 456 220 -503 Weight 84.686 kg Intake: IV 0 Precedex 400 Mcg/100 ml 0 Dextrose 400 Mcg In Premix 1 Bag @ 0.2 MCG/KG/HR 4.105 mls/ hr IV .Q24H [facility] Rx#:[id number] Oral 680 480 200 Output: Urine Catheter Amount 224 260 503 Void Amount 200 Other: Meal Dinner Nourishment/Supplement Percent of Meal Consumed 25% 100% Urine Appearance Clear Clear Clear Uretheral (Berry) Clear Cloudy Urine Color Dark Yellow Dark Amanda Yellow Uretheral (Berry) Dark Yellow Dark Amanda Urine Odor Normal Stool Size Moderate Stool Color Brown Stool Consistency Soft # Bowel Movements 1 # of times incontinent of 0 Bowels Head Head exam: Present atraumatic and normal inspection Eye Eye exam: Present normal appearance ENT ENT exam: Present mucous membranes moist, normal exam and normal external ear exam Neck Neck exam: Present normal inspection Respiratory Respiratory exam: Present normal respiratory exam Cardiovascular Cardiovascular exam: Present normal rate and rhythm GI/Abdominal GI/Abdominal exam: Present normal bowel sounds Back Exam Back exam: Present normal inspection Neurological Exam Neurological exam: Present alert and oriented X3 Skin Skin exam: Present intact and warm OBJ DATA Labs CBC & Chem 7: 09/12/22 05:47 09/12/22 05:46 Labs: Abnormal Lab Results 09/12/22 09/12/22 09/11/22 05:46 05:46 05:50 WBC RBC 2.98 L Hgb 10.6 L Hct 30.1 L MCV 101.0 H MCH 35.6 H Plt Count Immature Gran % (Auto) 2.0 H Neut % (Auto) Lymph % (Auto) 14.8 L Bartholomew % (Auto) 19.6 H Lymph # (Auto) Bartholomew # (Auto) 1.99 H Lymphocytes % Immature Gran # 0.20 H Absolute Neutrophils Platelet Estimate RBC Morphology Macrocytosis POC pH POC pCO2 POC pO2 Sodium Potassium 3.1 L Chloride 95 L Glucose 156 H 107 H Phosphorus 1.1 L 2.0 L Magnesium AST 76 H Albumin 3.0 L 2.7 L Albumin/Globulin Ratio 0.9 L 0.8 L 09/11/22 09/11/22 09/10/22 05:50 05:50 05:30 WBC RBC 3.17 L Hgb 11.1 L Hct 32.5 L MCV 102.5 H MCH 35.0 H Plt Count 102 L Immature Gran % (Auto) 0.7 H Neut % (Auto) Lymph % (Auto) 11.7 L Bartholomew % (Auto) 13.8 H Lymph # (Auto) 1.21 L Bartholomew # (Auto) 1.43 H Lymphocytes % 11 L Immature Gran # 0.07 H Absolute Neutrophils Platelet Estimate Decreased A RBC Morphology Abnormal A Macrocytosis 1+ A POC pH POC pCO2 POC pO2 Sodium 129 L Potassium Chloride 94 L Glucose 111 H Phosphorus Magnesium AST Albumin 2.8 L Albumin/Globulin Ratio 0.8 L 09/10/22 09/10/22 09/10/22 05:26 05:26 05:26 WBC 11.5 H 11.6 H RBC 3.50 L 3.45 L Hgb 12.1 L 12.1 L Hct 35.8 L 35.3 L MCV 102.3 H 102.3 H MCH 34.6 H 35.1 H Plt Count 86 L 89 L Immature Gran % (Auto) 1.3 H Neut % (Auto) 79.7 H Lymph % (Auto) 10.6 L Bartholomew % (Auto) Lymph # (Auto) 1.23 L Bartholomew # (Auto) Lymphocytes % 7 L Immature Gran # 0.15 H Absolute Neutrophils 9.24 H Platelet Estimate Decreased A RBC Morphology Abnormal A Macrocytosis 1+ A POC pH POC pCO2 POC pO2 Sodium Potassium Chloride Glucose Phosphorus 1.7 L Magnesium 1.5 L AST Albumin Albumin/Globulin Ratio 09/09/22 09/09/22 09/09/22 08:50 08:50 08:45 WBC 11.1 H RBC 3.44 L Hgb 12.1 L Hct 34.2 L MCV MCH 35.2 H Plt Count 97 L Immature Gran % (Auto) 2.5 H Neut % (Auto) 81.7 H Lymph % (Auto) 8.9 L Bartholomew % (Auto) Lymph # (Auto) 0.99 L Bartholomew # (Auto) Lymphocytes % Immature Gran # 0.28 H Absolute Neutrophils 9.11 H Platelet Estimate RBC Morphology Macrocytosis POC pH 7.49 H POC pCO2 30.8 L POC pO2 69 L Sodium 130 L Potassium Chloride 95 L Glucose 115 H Phosphorus Magnesium AST Albumin Albumin/Globulin Ratio Meds: Medications Acetaminophen (Acetaminophen 325 Mg Tablet) 650 mg PO Q6HP PRN; Protocol PRN Reason: Per Pain Protocol/Fever > 101 Last Admin: 09/11/22 18:58 Dose: 650 mg Al Hydrox/Mg Hydrox/Simethicone (Mag Hydrox/Al Hydrox/Simeth 30 Ml Oral.Susp) 30 ml PO Q4-6HP PRN PRN Reason: Dyspepsia Last Admin: 09/08/22 14:41 Dose: 30 ml Albuterol/Ipratropium (Ipratropium/Albuterol 3 Ml Ampul.Neb) 3 ml NEB Q4HRT PRN PRN Reason: Wheezing Last Admin: 09/11/22 16:19 Dose: 3 ml Albuterol/Ipratropium (Ipratropium/Albuterol 3 Ml Ampul.Neb) 3 ml NEB ONCE PRN PRN Reason: Shortness Of Breath Artificial Tears (Carboxymethylcellulose Sodium 1 Each Droper.Gel) 1 each OU BIDP PRN PRN Reason: Dry Eye(S) Last Admin: 09/11/22 20:17 Dose: 1 each Atorvastatin Calcium (Atorvastatin 20 Mg Tablet) 20 mg PO QDAY [facility] Last Admin: 09/11/22 08:21 Dose: 20 mg Cetirizine HCl (Cetirizine 10 Mg Tablet) 10 mg PO BID [facility] Last Admin: 09/11/22 20:15 Dose: 10 mg Chlorhexidine Gluconate (Chlorhexidine Gluconate 1 Ml Oral.Radha) 15 ml SWABMOUTH BID [facility] Last Admin: 09/11/22 20:16 Dose: 15 ml Clonidine HCl (Clonidine Hcl 0.1 Mg Tablet) 0.1 mg PO Q4HP PRN PRN Reason: ALC Last Admin: 09/11/22 19:10 Dose: 0.1 mg Docusate Sodium (Docusate Sodium 100 Mg Capsule) 100 mg PO BID [facility] Last Admin: 09/11/22 20:16 Dose: Not Given Enoxaparin Sodium (Enoxaparin 40 Mg/0.4 Ml Syringe) 40 mg SQ DAILY [facility] Last Admin: 09/11/22 07:53 Dose: 40 mg Folic Acid (Folic Acid 1 Mg Tablet) 1 mg PO DAILY [facility] Last Admin: 09/11/22 07:53 Dose: 1 mg Guaifenesin (Guaifenesin 600 Mg Tab.Sr.12h) 600 mg PO BIDP PRN PRN Reason: Allergic Symptoms Haloperidol Lactate (Haloperidol Lactate 5 Mg/Ml Vial) 0.5 mg IV Q2HP PRN PRN Reason: Alcohol Withdrawal/Assess CIWA Last Admin: 09/09/22 08:56 Dose: 0.5 mg Hydralazine HCl (Hydralazine 20 Mg/Ml Vial) 10 mg IV Q4-6HP PRN PRN Reason: Hypertension Last Admin: 09/12/22 04:02 Dose: 10 mg Hydromorphone HCl (Hydromorphone 0.5 Mg/0.5 Ml Syringe) 0.5 mg IV Q2HP PRN; Protocol PRN Reason: Per Pain Protocol Last Admin: 09/10/22 20:04 Dose: 0.5 mg Hydroxyzine HCl (Hydroxyzine 25 Mg Tablet) 0 mg PO Q4HP PRN PRN Reason: Anxiety/Agitation Last Admin: 09/11/22 19:10 Dose: 50 mg Dexmedetomidine HCl 400 mcg/ (Premix) 100 mls @ 4.105 mls/hr IV .Q24H [facility]; Protocol Last Admin: 09/11/22 20:32 Dose: Not Given Iron Carb/Multivit/Gotha/Folic Acid (Multivit,Ther Iron,Ca,Fa & Min 1 Tablet) 1 tab PO DAILY [facility] Last Admin: 09/11/22 08:20 Dose: 1 tab Lactase (Lactase 1 Tablet) 1 tab PO TIDP PRN PRN Reason: Indigestion Last Admin: 09/12/22 08:17 Dose: 1 tab Lactulose (Lactulose 20 Gm/30 Ml Oral.Radha) 10 gm PO DAILYP PRN PRN Reason: Constipation Lidocaine (Lidocaine Patch) 1 patch TOPICAL QDAY [facility] Last Admin: 09/11/22 08:21 Dose: 1 patch Lidocaine HCl (Lidocaine Viscous 2% 15 Ml Unit Dose Cup) 5 ml PO TIDP PRN PRN Reason: Pain Lisinopril (Lisinopril 20 Mg Tablet) 30 mg PO QAM [facility] Last Admin: 09/11/22 07:53 Dose: 30 mg Lorazepam (Lorazepam 2 Mg/Ml Vial) 1 mg IV Q1HP PRN PRN Reason: Seizure Activity Last Admin: 09/09/22 01:09 Dose: 1 mg Lorazepam (Lorazepam 1 Mg Tablet) 2 mg PO Q2HP PRN PRN Reason: CIWA-A >6 or HR >100 Lorazepam (Lorazepam 2 Mg/Ml Vial) 0 mg IV UD PRN; Protocol PRN Reason: Alcohol Withdrawal/Assess CIWA Last Admin: 09/10/22 17:05 Dose: 3 mg Lorazepam (Lorazepam 2 Mg/Ml Vial) 2 mg IV Q4H [facility] Last Admin: 09/12/22 04:02 Dose: 2 mg Metoprolol Tartrate (Metoprolol Tartrate 25 Mg Tablet) 50 mg PO BID [facility] Last Admin: 09/11/22 20:15 Dose: 50 mg Ondansetron HCl (Ondansetron 4 Mg/2 Ml Vial) 4 mg IV Q4HP PRN; Protocol PRN Reason: Nausea And Vomiting Oxycodone HCl (Oxycodone Hcl 5 Mg Tablet) 10 mg PO Q4HP PRN; Protocol PRN Reason: Per Pain Protocol Last Admin: 09/11/22 18:57 Dose: 10 mg Pantoprazole Sodium (Pantoprazole 40 Mg Tablet) 40 mg PO HS [facility] Last Admin: 09/11/22 20:16 Dose: 40 mg Diclofenac Sodium [ Arthritis Pain ( Diclofenac)] 1% Gel 1 dose TOPICAL BIDP PRN PRN Reason: Pain Ketotifen Fumarate 0 (.025 % Drops) 1 dose OU BIDP PRN PRN Reason: Allergy Symptoms Pregabalin (Pregabalin 25 Mg Capsule) 50 mg PO BID [facility] Last Admin: 09/11/22 20:15 Dose: 50 mg Senna (Sennosides 1 Tablet) 2 tab PO HSP PRN PRN Reason: Constipation Sodium Chloride (0.9 % Sodium Chloride 10 Ml Syringe) 10 ml IV Q8 [facility] Last Admin: 09/12/22 04:02 Dose: 10 ml Thiamine HCl (Thiamine 100 Mg Tablet) 100 mg PO QDAY [facility] Last Admin: 09/11/22 07:53 Dose: 100 mg Valacyclovir HCl (Valacyclovir 500 Mg Tablet) 500 mg PO DAILY [facility]; Protocol Last Admin: 09/11/22 08:42 Dose: 500 mg A/P Assessment and plan (1) Pancreatitis, alcoholic, acute: Status: Acute (2) Alcohol withdrawal delirium: Status: Acute (3) Anemia, hyperchromic: Status: Acute (4) Steatohepatitis, alcoholic: Status: Acute (5) Hypertension: Status: Chronic (6) Hypomagnesemia: Status: Acute Narrative A/P Narrative: Assessment and Plans: 1. 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 Alcohol withdrawal/delirium tremens: [facility] protocol with Ativan (PO if tolerates, IV if cannot tolerate PO) d/c scheduled Ativan IV Ativan IV PRN seizure activities Folic acid Multivitamins Thiamine cooperative manager consult for alcohol rehab referral Physical therapy evaluation and treatment 3. Essential hypertension: Lisinopril Metoprolol Clonidine 4. Alcoholic steatohepatitis: Continue to monitor 5. Anemia, hyperchromic: cbc w/ auto diff in the morning to trend H/H 6. Hypomagnesemia: MgSO4 IV replacement Daily Mg level to trend serum level GI ppx: Protonix PO DVT ppx: Lovenox Code status: Full Prognosis: Guarded Disposition: inpatient PCU Time Spent With Patient Time: Total time spent is greater than 50% in coordination of care (as documented) at patient's floor/unit and/or counseling patient: Total time spent with greater than 50% in coordination of care (as documented) at patient's floor/unit and/or counseling patient:: 35 - 50 minutes QUALITY Restraints Restraint In Place: No
[2022-09-12] MEDS: DOCUSATE SODIUM 100 MG CAPSULE PO SCH ×2 (08:48→20:23)
[2022-09-12] MEDS: ENOXAPARIN 40 MG/0.4 ML SYRINGE SQ SCH (09:05)
[2022-09-12] MEDS: METOPROLOL TARTRATE 25 MG TABLET PO SCH ×2 (09:06→20:23)
[2022-09-12] MEDS: LISINOPRIL 20 MG TABLET PO SCH (09:06)
[2022-09-12] MEDS: THIAMINE 100 MG TABLET PO SCH (09:06)
[2022-09-12] MEDS: FOLIC ACID 1 MG TABLET PO SCH (09:06)
[2022-09-12] MEDS: MULTIVIT,THER IRON,CA,FA & MIN 1 TABLET PO SCH (09:06)
[2022-09-12] MEDS: PREGABALIN 25 MG CAPSULE PO SCH ×2 (09:24→20:22)
[2022-09-12] MEDS: LIDOCAINE PATCH TOPICAL SCH (09:24)
[2022-09-12] MEDS: ATORVASTATIN 20 MG TABLET PO SCH (09:24)
[2022-09-12] MEDS: CETIRIZINE 10 MG TABLET PO SCH ×2 (09:24→20:22)
[2022-09-12] MEDS: valACYclovir 500 MG TABLET PO SCH (09:25)
[2022-09-12] MEDS: CHLORHEXIDINE GLUCONATE 1 ML ORAL.SOL SWABMOUTH SCH ×2 (09:31→20:24)
[2022-09-12 09:49] LABS: Band Neutrophils % 1 % (0-10); Eosinophils % (Manual) 2 % (0-7); Hypochromasia 1+ (None Seen); Lymphocytes % 23 % (15-49); Macrocytosis 1+ (None Seen); Monocytes % (Manual) 14 % (1-12); Platelet Estimate NORMAL (Normal); RBC Morphology ABNORMAL (Normal); Segmented Neutrophils % 60 % (38-78)
[2022-09-12] MEDS: LORazepam 2 MG/ML VIAL IV PRN ×2 (10:43→13:06)
--- NOTE | 2022-09-12 11:45 | XRay Report ---
INDICATION: left ankle/foot pain TECHNIQUE: AP and lateral left ankle COMPARISON: None. FINDINGS: Negative left ankle. No left ankle fracture. Tibiotalar joint space is normal. No plain film evidence for joint effusion. Talus and calcaneus are normal. Subtalar joints appear normal IMPRESSION: Negative left ankle Interpreted and Authenticated by: Esequiel oVss 09/12/22
[2022-09-12] MEDS: oxyCODONE HCL 5 MG TABLET PO PRN ×2 (12:51→20:23)
[2022-09-12] MEDS ORDERED: POTASSIUM PHOSPHATE 20 MEQ in DEXTROSE 5% IN WATER 250 ML IV ONE (13:00)
--- NOTE | 2022-09-12 13:21 | Internal Med Progress Note ---
SUBJECTIVE Subjective Patient information: Note initiated : 09/12/22 at 1:17 pm Service Date, if different from initiated Date: [] Patient: Go Kinsey 52 y/o M admitted on 09/08/22 for upper abd pain. Chief Complaint: [] Interval history: Mr. Kinsey is a 52 year old M history of chronic alcoholism, essential hypertensions, presenting with 1 day history of acute onset abdominal pain. Patient has a history of chronic alcoholism, and according to himself, he has been drinking even more for the past month since his father . He has been drinking 0.5 L of vodka per day with last use 2 days ago on . Yesterday night he had acute onset abdominal pain, epigastric with radiations to left upper quadrant, currently graded at 8 out of 10 in intensity, constant. It is complicated by nausea, vomiting, and loose stool. In addition, he has been to both alcohol Anonymous and inpatient alcohol rehab programs back in 1995. He is currently complain of insomnia, increased hand tremors, nausea vomiting, but he denies any hallucinations, anxiety, or agitations. Vital signs significant for tachycardia and tachypnea. Labs significant for serum lipase level 3050. AST ALT 58 and 25, respectively. Total bilirubin 1.8. CT of the abdomen showing presence of severe pancreatitis. No biliary obstructions or gallstone identified. Admission requested for alcoholic pancreatitis and potential alcohol withdrawal/delirium tremens. 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 CIWA score 14. Rapid response was called, and for limb restraint were placed. Precedex drip was also started last night, and patient is to be transferred to ICU status. Rest of the subjective not obtained due to clinical situations. Chest x-ray ordered this morning showing poor variations with bilateral a telectasis. Transfer patients to ICU status. 4-limbs restrained in place. Continue Precedex drips. Add scheduled Ativan IV. Saline lock the patient to prevent fluid overloading the patient. We will make the patient n.p.o. status right now due to his mentations. Continue CIWA protocol. Continue to provide narcotics as needed for abdominal pain due to alcoholic pancreatitis. 09/10: Patient was less agitated last night compared to the night before. Currently ordered restraints are off. He still on Precedex drip. CIWA scoring pending. No reported seizures overnight. Patient is waking up this morning and he is alert and oriented x3 to person place and time. Patient denies having any abdominal pain at the moment. He is just feeling very tired. We will keep the patient in the ICU. Continue to wean down or wean off Precedex drip as tolerated. Continue scheduled Ativan IV. We will start the patient on clear liquid diet and will advance as tolerated. Continue CIWA protocol. Continue to provide narcotics as needed for abdominal pain due to alcoholic pancreatitis. Pending physical therapy evaluation and treatment. Pending complex case manager consult for alcohol rehab referral. 09/11: CIWA score 16 this morning. Restraint was not initiated overnight. Precedex drip was being switched off earlier this morning. No seizures activities documented overnight. Patient's had a good sleep denies any insomnia. Negative for increased hand tremors. Patient denies any anxiety or agitations. He is still complain of mild GI upset with nausea but denies any vomiting and able to tolerate the breakfast with regular diet. He denies any visual or auditory hallucinations. Patient denies any abdominal pain. We will keep the patient in the ICU. Continue CIWA protocol with Ativan PO. Continue scheduled Ativan IV. Continue to provide narcotics as needed for abdominal pain due to alcoholic pancreatitis. Pending physical therapy evaluation and treatment. Pending complex case manager consult for alcohol rehab referral. 09/12: CIWA score overnight at this morning 10, 8, 5, respectively. Restraint was not initiated. Precedex drip has been off. Patient denies any visual or auditory hallucinations, stating that he only sees floaters. Denies anxiety or agitations. Denies nausea or vomiting. No increased hand tremors. Urine output is on the low end, currently at around 20 cc/h. Improving appetite. Denies any abdominal pain. We will transfer the patient from ICU to PCU. d/c scheduled Ativan IV. Continue CIWA protocol with Ativan PO. Continue to provide narcotics as needed for abdominal pain due to alcoholic pancreatitis. Pending physical therapy evaluation and treatment. Pending complex case manager consult for alcohol rehab referral. Constitutional Vitals: Vital Signs Temp Pulse Resp BP Pulse Ox O2 Del Method O2 Flow Rate 98.5 F 110 H 22 147/94 97 2 09/12/22 12:01 09/12/22 12:01 09/12/22 12:01 09/12/22 12:01 09/12/22 12:01 09/12/22 12:01 09/11/22 06:01 Period Temp Pulse Resp BP Sys/Esquivel Pulse Ox O2 Del Method O2 Flow Rate Last 24 Hr 97.7 F-101 F 93-124 14-37 115-179/63-115 92-100 Room Air-Room Air Intake and Output 09/12/22 09/12/22 09/12/22 03:59 11:59 19:59 Intake Total 480 200 Output Total 260 853 Balance 220 -653 Intake & Output: Intake & Output 09/12/22 09/12/22 09/12/22 03:59 11:59 19:59 Intake Total 480 200 Output Total 260 853 Balance 220 -653 Intake: Oral 480 200 Output: Urine Catheter Amount 260 653 Void Amount 200 Other: Meal Nourishment/Supplement Percent of Meal Consumed 100% Urine Appearance Clear Clear Uretheral (Berry) Cloudy Clear Urine Color Dark Amanda Yellow Uretheral (Berry) Dark Amanda Bright Yellow Urine Odor Normal Exam: General: Alert, Awake, No acute Distress, obese Eyes/N/T: EOMI, Head/Neck: neck supple, CV: RRR, No murmurs, Pulm: Clear b/l, no wheezing/rhonchi/rales Abd: soft, nontender, +BS x4 Ext: no clubbing/cyanosis/edema Neuro: Alert, no focal deficits, moves all extremities, Skin: warm/dry OBJ DATA Labs CBC & Chem 7: 09/12/22 05:47 09/12/22 05:46 Labs: Abnormal Lab Results 09/12/22 09/12/22 09/12/22 05:47 05:46 05:46 WBC RBC 2.98 L Hgb 10.6 L Hct 30.1 L MCV 101.0 H MCH 35.6 H Plt Count Immature Gran % (Auto) 2.0 H Neut % (Auto) Lymph % (Auto) 14.8 L [place] % (Auto) 19.6 H Lymph # (Auto) [place] # (Auto) 1.99 H Lymphocytes % Monocytes % (Manual) 14 H Immature Gran # 0.20 H Absolute Neutrophils Platelet Estimate RBC Morphology Abnormal A Hypochromasia 1+ A Macrocytosis 1+ A Sodium Potassium 3.1 L Chloride 95 L Glucose 156 H Phosphorus 1.1 L Magnesium AST 76 H Albumin 3.0 L Albumin/Globulin Ratio 0.9 L 09/11/22 09/11/22 09/11/22 05:50 05:50 05:50 WBC RBC 3.17 L Hgb 11.1 L Hct 32.5 L MCV 102.5 H MCH 35.0 H Plt Count 102 L Immature Gran % (Auto) 0.7 H Neut % (Auto) Lymph % (Auto) 11.7 L [place] % (Auto) 13.8 H Lymph # (Auto) 1.21 L [place] # (Auto) 1.43 H Lymphocytes % 11 L Monocytes % (Manual) Immature Gran # 0.07 H Absolute Neutrophils Platelet Estimate Decreased A RBC Morphology Abnormal A Hypochromasia Macrocytosis 1+ A Sodium Potassium Chloride Glucose 107 H Phosphorus 2.0 L Magnesium AST Albumin 2.7 L Albumin/Globulin Ratio 0.8 L 09/10/22 09/10/22 09/10/22 05:30 05:26 05:26 WBC 11.5 H RBC 3.50 L Hgb 12.1 L Hct 35.8 L MCV 102.3 H MCH 34.6 H Plt Count 86 L Immature Gran % (Auto) Neut % (Auto) Lymph % (Auto) [place] % (Auto) Lymph # (Auto) [place] # (Auto) Lymphocytes % 7 L Monocytes % (Manual) Immature Gran # Absolute Neutrophils Platelet Estimate Decreased A RBC Morphology Abnormal A Hypochromasia Macrocytosis 1+ A Sodium 129 L Potassium Chloride 94 L Glucose 111 H Phosphorus 1.7 L Magnesium 1.5 L AST Albumin 2.8 L Albumin/Globulin Ratio 0.8 L 09/10/22 05:26 WBC 11.6 H RBC 3.45 L Hgb 12.1 L Hct 35.3 L MCV 102.3 H MCH 35.1 H Plt Count 89 L Immature Gran % (Auto) 1.3 H Neut % (Auto) 79.7 H Lymph % (Auto) 10.6 L [place] % (Auto) Lymph # (Auto) 1.23 L [place] # (Auto) Lymphocytes % Monocytes % (Manual) Immature Gran # 0.15 H Absolute Neutrophils 9.24 H Platelet Estimate RBC Morphology Hypochromasia Macrocytosis Sodium Potassium Chloride Glucose Phosphorus Magnesium AST Albumin Albumin/Globulin Ratio Meds: Medications Acetaminophen (Acetaminophen 325 Mg Tablet) 650 mg PO Q6HP PRN; Protocol PRN Reason: Per Pain Protocol/Fever > 101 Last Admin: 09/11/22 18:58 Dose: 650 mg Al Hydrox/Mg Hydrox/Simethicone (Mag Hydrox/Al Hydrox/Simeth 30 Ml Oral.Susp) 30 ml PO Q4-6HP PRN PRN Reason: Dyspepsia Last Admin: 09/08/22 14:41 Dose: 30 ml Albuterol/Ipratropium (Ipratropium/Albuterol 3 Ml Ampul.Neb) 3 ml NEB Q4HRT PRN PRN Reason: Wheezing Last Admin: 09/11/22 16:19 Dose: 3 ml Artificial Tears (Carboxymethylcellulose Sodium 1 Each Droper.Gel) 1 each OU BIDP PRN PRN Reason: Dry Eye(S) Last Admin: 09/11/22 20:17 Dose: 1 each Atorvastatin Calcium (Atorvastatin 20 Mg Tablet) 20 mg PO QDAY [facility] Last Admin: 09/12/22 09:24 Dose: 20 mg Cetirizine HCl (Cetirizine 10 Mg Tablet) 10 mg PO BID [facility] Last Admin: 09/12/22 09:24 Dose: 10 mg Chlorhexidine Gluconate (Chlorhexidine Gluconate 1 Ml Oral.Radha) 15 ml SWABMOUTH BID [facility] Last Admin: 09/12/22 09:31 Dose: 15 ml Clonidine HCl (Clonidine Hcl 0.1 Mg Tablet) 0.1 mg PO Q4HP PRN PRN Reason: ALC Last Admin: 09/11/22 19:10 Dose: 0.1 mg Docusate Sodium (Docusate Sodium 100 Mg Capsule) 100 mg PO BID [facility] Last Admin: 09/12/22 08:48 Dose: Not Given Enoxaparin Sodium (Enoxaparin 40 Mg/0.4 Ml Syringe) 40 mg SQ DAILY [facility] Last Admin: 09/12/22 09:05 Dose: 40 mg Folic Acid (Folic Acid 1 Mg Tablet) 1 mg PO DAILY [facility] Last Admin: 09/12/22 09:06 Dose: 1 mg Guaifenesin (Guaifenesin 600 Mg Tab.Sr.12h) 600 mg PO BIDP PRN PRN Reason: Allergic Symptoms Haloperidol Lactate (Haloperidol Lactate 5 Mg/Ml Vial) 0.5 mg IV Q2HP PRN PRN Reason: Alcohol Withdrawal/Assess CIWA Last Admin: 09/09/22 08:56 Dose: 0.5 mg Hydralazine HCl (Hydralazine 20 Mg/Ml Vial) 10 mg IV Q4-6HP PRN PRN Reason: Hypertension Last Admin: 09/12/22 04:02 Dose: 10 mg Hydromorphone HCl (Hydromorphone 0.5 Mg/0.5 Ml Syringe) 0.5 mg IV Q2HP PRN; Protocol PRN Reason: Per Pain Protocol Last Admin: 09/10/22 20:04 Dose: 0.5 mg Hydroxyzine HCl (Hydroxyzine 25 Mg Tablet) 0 mg PO Q4HP PRN PRN Reason: Anxiety/Agitation Last Admin: 09/11/22 19:10 Dose: 50 mg Potassium Phosphate 20 meq/ (Dextrose) 254.5455 mls @ 127.273 mls/hr IV ONCE ONE Stop: 09/12/22 14:59 Iron Carb/Multivit/[place]/Folic Acid (Multivit,Ther Iron,Ca,Fa & Min 1 Tablet) 1 tab PO DAILY [facility] Last Admin: 09/12/22 09:06 Dose: 1 tab Lactase (Lactase 1 Tablet) 1 tab PO TIDP PRN PRN Reason: Indigestion Last Admin: 09/12/22 08:17 Dose: 1 tab Lactulose (Lactulose 20 Gm/30 Ml Oral.Radha) 10 gm PO DAILYP PRN PRN Reason: Constipation Lidocaine (Lidocaine Patch) 1 patch TOPICAL QDAY [facility] Last Admin: 09/12/22 09:24 Dose: 1 patch Lidocaine HCl (Lidocaine Viscous 2% 15 Ml Unit Dose Cup) 5 ml PO TIDP PRN PRN Reason: Pain Lisinopril (Lisinopril 20 Mg Tablet) 30 mg PO QAM [facility] Last Admin: 09/12/22 09:06 Dose: 30 mg Lorazepam (Lorazepam 2 Mg/Ml Vial) 1 mg IV Q1HP PRN PRN Reason: Seizure Activity Last Admin: 09/09/22 01:09 Dose: 1 mg Lorazepam (Lorazepam 1 Mg Tablet) 2 mg PO Q2HP PRN PRN Reason: CIWA-A >6 or HR >100 Lorazepam (Lorazepam 2 Mg/Ml Vial) 0 mg IV UD PRN; Protocol PRN Reason: Alcohol Withdrawal/Assess CIWA Last Admin: 09/12/22 13:06 Dose: 2 mg Metoprolol Tartrate (Metoprolol Tartrate 25 Mg Tablet) 50 mg PO BID [facility] Last Admin: 09/12/22 09:06 Dose: 50 mg Ondansetron HCl (Ondansetron 4 Mg/2 Ml Vial) 4 mg IV Q4HP PRN; Protocol PRN Reason: Nausea And Vomiting Oxycodone HCl (Oxycodone Hcl 5 Mg Tablet) 10 mg PO Q4HP PRN; Protocol PRN Reason: Per Pain Protocol Last Admin: 09/12/22 12:51 Dose: 10 mg Pantoprazole Sodium (Pantoprazole 40 Mg Tablet) 40 mg PO HS [facility] Last Admin: 09/11/22 20:16 Dose: 40 mg Diclofenac Sodium [ Arthritis Pain ( Diclofenac)] 1% Gel 1 dose TOPICAL BIDP PRN PRN Reason: Pain Ketotifen Fumarate 0 (.025 % Drops) 1 dose OU BIDP PRN PRN Reason: Allergy Symptoms Pregabalin (Pregabalin 25 Mg Capsule) 50 mg PO BID [facility] Last Admin: 09/12/22 09:24 Dose: 50 mg Senna (Sennosides 1 Tablet) 2 tab PO HSP PRN PRN Reason: Constipation Sodium Chloride (0.9 % Sodium Chloride 10 Ml Syringe) 10 ml IV Q8 [facility] Last Admin: 09/12/22 04:02 Dose: 10 ml Thiamine HCl (Thiamine 100 Mg Tablet) 100 mg PO QDAY [facility] Last Admin: 09/12/22 09:06 Dose: 100 mg Valacyclovir HCl (Valacyclovir 500 Mg Tablet) 500 mg PO DAILY [facility]; Protocol Last Admin: 09/12/22 09:25 Dose: 500 mg A/P Narrative A/P Narrative: Assessment and Plans: *Acute alcoholic pancreatitis: -low fat diet -d/c IVF -pain control -Pest Control Service Technician patient about alcoholism, see below *Alcohol withdrawal/delirium tremens: -CIWA protocol with Ativan (PO if tolerates, IV if cannot tolerate PO) -Ativan IV PRN seizure activities -Folic acid, Multivitamins, Thiamine -guest house manager consult for alcohol rehab referral -Physical therapy evaluation and treatment *Essential hypertension: -Lisinopril/Metoprolol/Clonidine *Alcoholic steatohepatitis: Continue to monitor *Anemia, hyperchromic: cbc w/ auto diff in the morning to trend H/H *Hypomagnesemia: -replacement, Daily Mg level to trend serum level *Obese: BMI 30 *ppx: Lovenox / ppi Time Spent With Patient Time: Total time spent is greater than 50% in coordination of care (as documented) at patient's floor/unit and/or counseling patient:
[2022-09-12] MEDS: ACETAMINOPHEN 325 MG TABLET PO PRN ×2 (14:54→19:41)
[2022-09-12] MEDS: cloNIDine HCL 0.1 MG TABLET PO PRN (20:22)
[2022-09-12] MEDS: PANTOPRAZOLE 40 MG TABLET PO SCH (20:23)
[2022-09-12] MEDS: hydrOXYzine 25 MG TABLET PO PRN (20:23)
[2022-09-13] MEDS: LORazepam 2 MG/ML VIAL IV PRN (00:33)
[2022-09-13] MEDS: 0.9 % SODIUM CHLORIDE 10 ML SYRINGE IV SCH ×3 (05:08→20:52)
[2022-09-13 08:15] LABS: Hematocrit 29.9 % (40.1-51.0); Hemoglobin 10.2 g/dL (13.7-17.5); Mean Cell Volume 100.7 fL (80.0-100.0); Mean Corpuscular HGB Conc 34.1 g/dL (31.0-36.0); Mean Platelet Volume 10.5 fL (8.8-12.5); Platelet Count 219 K/mcL (140-440); RBC 2.97 M/mcL (4.63-6.08); Red Cell Distribution Width 12.6 % (11.5-14.5); WBC 11.9 K/mcL (4.5-11.0)
[2022-09-13 08:26] LABS: ALT/SGPT 45 U/L (<40); AST/SGOT 72 U/L (<40); Albumin/Globulin Ratio 0.9 (1.0-2.3); Alkaline Phosphatase 92 U/L (39-117); Bilirubin,Direct 0.3 mg/dL (<0.3); Bilirubin,Total 0.6 mg/dL (0.1-1.0); Blood Urea Nitrogen 6 mg/dL (6-20); Calcium 8.9 mg/dL (8.6-10.4); Carbon Dioxide 27 mmol/L (22-30); Chloride 95 mmol/L (96-108); Globulin 3.3 gm/dL (2.2-3.7); Glomerular Filtration Rate 85; Glucose 112 mg/dL (70-105); Lactate Dehydrogenase 264 U/L (135-225); Phosphorous 3.9 mg/dL (2.5-4.5); Triglycerides 104 mg/dL (<150); Uric Acid 5.1 mg/dL (2.5-8.0)
[2022-09-13] MEDS ORDERED: chlordiazePOXIDE 25 MG CAPSULE PO PRN (08:36)
[2022-09-13] MEDS ORDERED: POTASSIUM CHLORIDE 20 MEQ TABLET PO ONE (08:41)
--- NOTE | 2022-09-13 08:43 | Internal Med Progress Note ---
SUBJECTIVE Subjective Patient information: Note initiated : 09/13/22 at 8:34 am Service Date, if different from initiated Date: [] Patient: Go Kinsey 52 y/o M admitted on 09/08/22 for upper abd pain. Chief Complaint: [] Interval history: Mr. Kinsey is a 52 year old M history of chronic alcoholism, essential hypertensions, presenting with 1 day history of acute onset abdominal pain. Patient has a history of chronic alcoholism, and according to himself, he has been drinking even more for the past month since his father . He has been drinking 0.5 L of vodka per day with last use 2 days ago on . Yesterday night he had acute onset abdominal pain, epigastric with radiations to left upper quadrant, currently graded at 8 out of 10 in intensity, constant. It is complicated by nausea, vomiting, and loose stool. In addition, he has been to both alcohol Anonymous and inpatient alcohol rehab programs back in 1995. He is currently complain of insomnia, increased hand tremors, nausea vomiting, but he denies any hallucinations, anxiety, or agitations. Vital signs significant for tachycardia and tachypnea. Labs significant for serum lipase level 3050. AST ALT 58 and 25, respectively. Total bilirubin 1.8. CT of the abdomen showing presence of severe pancreatitis. No biliary obstructions or gallstone identified. Admission requested for alcoholic pancreatitis and potential alcohol withdrawal/delirium tremens. 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 CIWA score 14. Rapid response was called, and for limb restraint were placed. Precedex drip was also started last night, and patient is to be transferred to ICU status. Rest of the subjective not obtained due to clinical situations. Chest x-ray ordered this morning showing poor variations with bilateral a telectasis. Transfer patients to ICU status. 4-limbs restrained in place. Continue Precedex drips. Add scheduled Ativan IV. Saline lock the patient to prevent fluid overloading the patient. We will make the patient n.p.o. status right now due to his mentations. Continue CIWA protocol. Continue to provide narcotics as needed for abdominal pain due to alcoholic pancreatitis. 09/10: Patient was less agitated last night compared to the night before. Currently ordered restraints are off. He still on Precedex drip. CIWA scoring pending. No reported seizures overnight. Patient is waking up this morning and he is alert and oriented x3 to person place and time. Patient denies having any abdominal pain at the moment. He is just feeling very tired. We will keep the patient in the ICU. Continue to wean down or wean off Precedex drip as tolerated. Continue scheduled Ativan IV. We will start the patient on clear liquid diet and will advance as tolerated. Continue CIWA protocol. Continue to provide narcotics as needed for abdominal pain due to alcoholic pancreatitis. Pending physical therapy evaluation and treatment. Pending mattress spring encaser consult for alcohol rehab referral. 09/11: CIWA score 16 this morning. Restraint was not initiated overnight. Precedex drip was being switched off earlier this morning. No seizures activities documented overnight. Patient's had a good sleep denies any insomnia. Negative for increased hand tremors. Patient denies any anxiety or agitations. He is still complain of mild GI upset with nausea but denies any vomiting and able to tolerate the breakfast with regular diet. He denies any visual or auditory hallucinations. Patient denies any abdominal pain. We will keep the patient in the ICU. Continue CIWA protocol with Ativan PO. Continue scheduled Ativan IV. Continue to provide narcotics as needed for abdominal pain due to alcoholic pancreatitis. Pending physical therapy evaluation and treatment. Pending mattress spring encaser consult for alcohol rehab referral. 09/12: CIWA score overnight at this morning 10, 8, 5, respectively. Restraint was not initiated. Precedex drip has been off. Patient denies any visual or auditory hallucinations, stating that he only sees floaters. Denies anxiety or agitations. Denies nausea or vomiting. No increased hand tremors. Urine output is on the low end, currently at around 20 cc/h. Improving appetite. Denies any abdominal pain. We will transfer the patient from ICU to PCU. d/c scheduled Ativan IV. Continue CIWA protocol with Ativan PO. Continue to provide narcotics as needed for abdominal pain due to alcoholic pancreatitis. Pending physical therapy evaluation and treatment. Pending mattress spring encaser consult for alcohol rehab referral. 09/13 Patient has intermittent fevers up to 101. Although he states he has fevers at home, and this been going on for years. He feels his abdominal pain is improving. Over his feet both hurt. Left is swollen. Some erythema around the MTP joint. Patient denies history of gout. Given the fevers however an elevated procalcitonin we will start empiric antibiotics for either cellulitis and will get repeat imaging of the abdomen to make sure nothing is developing in there such as abscess. Review of Systems: denies headache/fever/chills/nausea/vomiting/chest pain/cough/dyspnea/diarrhea. Otherwise see above. Constitutional Vitals: Vital Signs Temp Pulse Resp BP Pulse Ox O2 Del Method O2 Flow Rate 98.3 F 98 H 16 120/97 98 2 09/13/22 04:01 09/13/22 06:01 09/13/22 06:01 09/13/22 06:01 09/13/22 06:01 09/13/22 04:01 09/11/22 06:01 Period Temp Pulse Resp BP Sys/Esquivel Pulse Ox O2 Del Method O2 Flow Rate Last 24 Hr 98.2 F-101.8 F 98-124 - 120-159/90-108 92-98 Room Air-Room Air Intake and Output 09/12/22 09/13/22 09/13/22 19:59 03:59 11:59 Intake Total 924.5455 240 360 Output Total 375 70 650 Balance 549.5455 170 -290 Weight 83.915 kg Intake & Output: Intake & Output 09/12/22 09/13/22 09/13/22 19:59 03:59 11:59 Intake Total 924.5455 240 360 Output Total 375 70 650 Balance 549.5455 170 -290 Weight 83.915 kg Intake: IV 254.5455 Potassium Phosphate 20 Meq In 254.5455 Dextrose 5% in Water 250 ml @ 127.273 mls/hr IV ONCE ONE Rx#: [id number] Oral 670 240 360 Output: Urine Catheter Amount 375 70 650 Other: Meal Breakfast Dinner Percent of Meal Consumed 75% 75% Feeding Ability Assist with Tray Set Up Urine Appearance Clear Clear Clear Urine Color Dark Yellow Dark Yellow Dark Yellow Exam: General: Alert, Awake, No acute Distress, obese Eyes/N/T: EOMI, Head/Neck: neck supple, CV: RRR, No murmurs, Pulm: Clear b/l, no wheezing/rhonchi/rales Abd: soft, TTP throughout but improved, +BS x4 Ext: no clubbing/cyanosis, Left foot edema and erythema forefoot and MTP, right MTP red. Neuro: Alert, no focal deficits, moves all extremities, Skin: warm/dry OBJ DATA Labs CBC & Chem 7: 09/13/22 05:42 09/13/22 05:42 Labs: Abnormal Lab Results 09/13/22 09/13/22 09/12/22 05:42 05:42 05:47 WBC 11.9 H RBC 2.97 L Hgb 10.2 L Hct 29.9 L MCV 100.7 H MCH 34.3 H Plt Count Immature Gran % (Auto) Lymph % (Auto) [place] % (Auto) Lymph # (Auto) [place] # (Auto) Lymphocytes % Monocytes % (Manual) 14 H Immature Gran # Platelet Estimate RBC Morphology Abnormal A Hypochromasia 1+ A Macrocytosis 1+ A Sodium Potassium 3.1 L Chloride 95 L Glucose 112 H Phosphorus Direct Bilirubin 0.3 H GGT 174 H AST 72 H ALT 45 H Lactate Dehydrogenase 264 H Albumin 3.0 L Albumin/Globulin Ratio 0.9 L 09/12/22 09/12/22 09/11/22 05:46 05:46 05:50 WBC RBC 2.98 L Hgb 10.6 L Hct 30.1 L MCV 101.0 H MCH 35.6 H Plt Count Immature Gran % (Auto) 2.0 H Lymph % (Auto) 14.8 L [place] % (Auto) 19.6 H Lymph # (Auto) [place] # (Auto) 1.99 H Lymphocytes % Monocytes % (Manual) Immature Gran # 0.20 H Platelet Estimate RBC Morphology Hypochromasia Macrocytosis Sodium Potassium 3.1 L Chloride 95 L Glucose 156 H 107 H Phosphorus 1.1 L 2.0 L Direct Bilirubin GGT AST 76 H ALT Lactate Dehydrogenase Albumin 3.0 L 2.7 L Albumin/Globulin Ratio 0.9 L 0.8 L 09/11/22 09/11/22 09/10/22 05:50 05:50 05:30 WBC RBC 3.17 L Hgb 11.1 L Hct 32.5 L MCV 102.5 H MCH 35.0 H Plt Count 102 L Immature Gran % (Auto) 0.7 H Lymph % (Auto) 11.7 L [place] % (Auto) 13.8 H Lymph # (Auto) 1.21 L [place] # (Auto) 1.43 H Lymphocytes % 11 L Monocytes % (Manual) Immature Gran # 0.07 H Platelet Estimate Decreased A RBC Morphology Abnormal A Hypochromasia Macrocytosis 1+ A Sodium 129 L Potassium Chloride 94 L Glucose 111 H Phosphorus Direct Bilirubin GGT AST ALT Lactate Dehydrogenase Albumin 2.8 L Albumin/Globulin Ratio 0.8 L Meds: Medications Acetaminophen (Acetaminophen 325 Mg Tablet) 650 mg PO Q6HP PRN; Protocol PRN Reason: Per Pain Protocol/Fever > 101 Last Admin: 09/12/22 19:41 Dose: 650 mg Al Hydrox/Mg Hydrox/Simethicone (Mag Hydrox/Al Hydrox/Simeth 30 Ml Oral.Susp) 30 ml PO Q4-6HP PRN PRN Reason: Dyspepsia Last Admin: 09/08/22 14:41 Dose: 30 ml Albuterol/Ipratropium (Ipratropium/Albuterol 3 Ml Ampul.Neb) 3 ml NEB Q4HRT PRN PRN Reason: Wheezing Last Admin: 09/11/22 16:19 Dose: 3 ml Artificial Tears (Carboxymethylcellulose Sodium 1 Each Droper.Gel) 1 each OU BIDP PRN PRN Reason: Dry Eye(S) Last Admin: 09/11/22 20:17 Dose: 1 each Atorvastatin Calcium (Atorvastatin 20 Mg Tablet) 20 mg PO QDAY [facility] Last Admin: 09/12/22 09:24 Dose: 20 mg Cetirizine HCl (Cetirizine 10 Mg Tablet) 10 mg PO BID [facility] Last Admin: 09/12/22 20:22 Dose: 10 mg Chlorhexidine Gluconate (Chlorhexidine Gluconate 1 Ml Oral.Radha) 15 ml SWABMOUTH BID [facility] Last Admin: 09/12/22 20:24 Dose: 15 ml Clonidine HCl (Clonidine Hcl 0.1 Mg Tablet) 0.1 mg PO Q4HP PRN PRN Reason: ALC Last Admin: 09/12/22 20:22 Dose: 0.1 mg Docusate Sodium (Docusate Sodium 100 Mg Capsule) 100 mg PO BID [facility] Last Admin: 09/12/22 20:23 Dose: 100 mg Enoxaparin Sodium (Enoxaparin 40 Mg/0.4 Ml Syringe) 40 mg SQ DAILY [facility] Last Admin: 09/12/22 09:05 Dose: 40 mg Folic Acid (Folic Acid 1 Mg Tablet) 1 mg PO DAILY [facility] Last Admin: 09/12/22 09:06 Dose: 1 mg Guaifenesin (Guaifenesin 600 Mg Tab.Sr.12h) 600 mg PO BIDP PRN PRN Reason: Allergic Symptoms Haloperidol Lactate (Haloperidol Lactate 5 Mg/Ml Vial) 0.5 mg IV Q2HP PRN PRN Reason: Alcohol Withdrawal/Assess CIWA Last Admin: 09/09/22 08:56 Dose: 0.5 mg Hydralazine HCl (Hydralazine 20 Mg/Ml Vial) 10 mg IV Q4-6HP PRN PRN Reason: Hypertension Last Admin: 09/12/22 04:02 Dose: 10 mg Hydromorphone HCl (Hydromorphone 0.5 Mg/0.5 Ml Syringe) 0.5 mg IV Q2HP PRN; Protocol PRN Reason: Per Pain Protocol Last Admin: 09/10/22 20:04 Dose: 0.5 mg Hydroxyzine HCl (Hydroxyzine 25 Mg Tablet) 0 mg PO Q4HP PRN PRN Reason: Anxiety/Agitation Last Admin: 09/12/22 20:23 Dose: 50 mg Iron Carb/Multivit/[place]/Folic Acid (Multivit,Ther Iron,Ca,Fa & Min 1 Tablet) 1 tab PO DAILY [facility] Last Admin: 09/12/22 09:06 Dose: 1 tab Lactase (Lactase 1 Tablet) 1 tab PO TIDP PRN PRN Reason: Indigestion Last Admin: 09/12/22 08:17 Dose: 1 tab Lactulose (Lactulose 20 Gm/30 Ml Oral.Radha) 10 gm PO DAILYP PRN PRN Reason: Constipation Lidocaine (Lidocaine Patch) 1 patch TOPICAL QDAY [facility] Last Admin: 09/12/22 09:24 Dose: 1 patch Lidocaine HCl (Lidocaine Viscous 2% 15 Ml Unit Dose Cup) 5 ml PO TIDP PRN PRN Reason: Pain Lisinopril (Lisinopril 20 Mg Tablet) 30 mg PO QAM [facility] Last Admin: 09/12/22 09:06 Dose: 30 mg Lorazepam (Lorazepam 2 Mg/Ml Vial) 1 mg IV Q1HP PRN PRN Reason: Seizure Activity Last Admin: 09/09/22 01:09 Dose: 1 mg Lorazepam (Lorazepam 1 Mg Tablet) 2 mg PO Q2HP PRN PRN Reason: CIWA-A >6 or HR >100 Lorazepam (Lorazepam 2 Mg/Ml Vial) 0 mg IV UD PRN; Protocol PRN Reason: Alcohol Withdrawal/Assess [facility] Last Admin: 09/13/22 00:33 Dose: 2 mg Metoprolol Tartrate (Metoprolol Tartrate 25 Mg Tablet) 50 mg PO BID [facility] Last Admin: 09/12/22 20:23 Dose: 50 mg Ondansetron HCl (Ondansetron 4 Mg/2 Ml Vial) 4 mg IV Q4HP PRN; Protocol PRN Reason: Nausea And Vomiting Oxycodone HCl (Oxycodone Hcl 5 Mg Tablet) 10 mg PO Q4HP PRN; Protocol PRN Reason: Per Pain Protocol Last Admin: 09/12/22 20:23 Dose: 10 mg Pantoprazole Sodium (Pantoprazole 40 Mg Tablet) 40 mg PO HS [facility] Last Admin: 09/12/22 20:23 Dose: 40 mg Diclofenac Sodium [ Arthritis Pain ( Diclofenac)] 1% Gel 1 dose TOPICAL BIDP PRN PRN Reason: Pain Ketotifen Fumarate 0 (.025 % Drops) 1 dose OU BIDP PRN PRN Reason: Allergy Symptoms Pregabalin (Pregabalin 25 Mg Capsule) 50 mg PO BID [facility] Last Admin: 09/12/22 20:22 Dose: 50 mg Senna (Sennosides 1 Tablet) 2 tab PO HSP PRN PRN Reason: Constipation Sodium Chloride (0.9 % Sodium Chloride 10 Ml Syringe) 10 ml IV Q8 [facility] Last Admin: 09/13/22 05:08 Dose: 10 ml Thiamine HCl (Thiamine 100 Mg Tablet) 100 mg PO QDAY [facility] Last Admin: 09/12/22 09:06 Dose: 100 mg Valacyclovir HCl (Valacyclovir 500 Mg Tablet) 500 mg PO DAILY [facility]; Protocol Last Admin: 09/12/22 09:25 Dose: 500 mg A/P Narrative A/P Narrative: Assessment and Plans: *Acute alcoholic pancreatitis: -low fat diet -d/c IVF -f/u lipase -pain control -[place] patient about alcoholism, see below *Alcohol withdrawal/delirium tremens: -[facility] protocol -Ativan IV PRN seizure activities -Folic acid, Multivitamins, Thiamine -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 elevated pct, cxr neg -repeat CT a/p -Rocephin, BC *possible gout: steroids *Essential hypertension: -Lisinopril/Metoprolol/Clonidine *Alcoholic steatohepatitis: Continue to monitor *Anemia, macrocytic: cbc w/ auto diff in the morning to trend H/H *Hypomagnesemia/hypokalemia/hypophosphatemia: -replacement, trend serum level s *Obese: BMI 30. Lifestyle changes *ppx: Lovenox / ppi Time Spent With Patient Time: Total time spent is greater than 50% in coordination of care (as documented) at patient's floor/unit and/or counseling patient: Total time spent with greater than 50% in coordination of care (as documented) at patient's floor/unit and/or counseling patient:: 35 - 50 minutes QUALITY Restraints Restraint In Place: No
[2022-09-13 08:55] LABS: Band Neutrophils % 4 % (0-10); Eosinophils % (Manual) 1 % (0-7); Lymphocytes % 24 % (15-49); Macrocytosis 1+ (None Seen); Monocytes % (Manual) 23 % (1-12); Platelet Estimate NORMAL (Normal); RBC Morphology ABNORMAL (Normal); Segmented Neutrophils % 48 % (38-78)
[2022-09-13] MEDS: METOPROLOL TARTRATE 25 MG TABLET PO SCH ×2 (09:26→20:51)
[2022-09-13] MEDS: MULTIVIT,THER IRON,CA,FA & MIN 1 TABLET PO SCH (09:26)
[2022-09-13] MEDS: FOLIC ACID 1 MG TABLET PO SCH (09:27)
[2022-09-13] MEDS: LACTASE 1 TABLET PO PRN (09:27)
[2022-09-13] MEDS: THIAMINE 100 MG TABLET PO SCH (09:27)
[2022-09-13] MEDS: LISINOPRIL 20 MG TABLET PO SCH (09:27)
[2022-09-13] MEDS: ENOXAPARIN 40 MG/0.4 ML SYRINGE SQ SCH (09:27)
--- NOTE | 2022-09-13 09:27 | XRay Report ---
INDICATION: fevers TECHNIQUE: AP portable chest x-ray COMPARISON: None FINDINGS: Lungs:Minimal left basilar density consistent with atelectasis. Appearance is improved Heart, vascular:No significant cardiomegaly. Pulmonary vascularity is normal. No pulmonary edema or pulmonary congestion Mediastinum, gilda:No mediastinal widening. No hilar mass Pleura:No pleural fluid. No pleural-based mass or calcification Skeletal:Negative. IMPRESSION: 1. Mild left lower lobe pulmonary parenchymal density consistent with atelectasis. This is improved since 09/09/2022 2. No new abnormality Interpreted and Authenticated by: Esequiel Voss 09/13/22
[2022-09-13] MEDS: valACYclovir 500 MG TABLET PO SCH (09:28)
[2022-09-13] MEDS: IPRATROPIUM/ALBUTEROL 3 ML AMPUL.NEB NEB PRN (09:35)
[2022-09-13] MEDS: DOCUSATE SODIUM 100 MG CAPSULE PO SCH ×2 (09:36→20:50)
[2022-09-13] MEDS: PREGABALIN 25 MG CAPSULE PO SCH ×2 (10:16→20:51)
[2022-09-13] MEDS: CHLORHEXIDINE GLUCONATE 1 ML ORAL.SOL SWABMOUTH SCH ×2 (10:16→20:51)
[2022-09-13] MEDS: CETIRIZINE 10 MG TABLET PO SCH ×2 (10:17→20:51)
[2022-09-13] MEDS: ATORVASTATIN 20 MG TABLET PO SCH (10:17)
[2022-09-13] MEDS: cefTRIAXone 2 GM in DEXTROSE 5% IN WATER 50 ML IV SCH (11:01)
[2022-09-13] MEDS ORDERED: NAPROXEN 250 MG TABLET PO ONE (12:11)
[2022-09-13] MEDS ORDERED: FUROSEMIDE 20 MG/2 ML VIAL IV ONE (12:14)
[2022-09-13] MEDS ORDERED: ALBUMIN HUMAN 12.5 GM/50 ML BAG IV ONE (12:14)
[2022-09-13] MEDS: LIDOCAINE PATCH TOPICAL SCH (12:20)
[2022-09-13] MEDS: predniSONE 20 MG TABLET PO SCH (12:50)
[2022-09-13] MEDS: HYDROmorphone 0.5 MG/0.5 ML SYRINGE IV PRN (13:43)
[2022-09-13] MEDS ORDERED: IOPAMIDOL 100 ML BOTTLE IV ONE (15:45)
--- NOTE | 2022-09-13 16:10 | Cat Scan Report ---
INDICATION: fevers, f/u pancreatitis COMPARISON: Previous examination dated 09/08/2022 TECHNIQUE: Axial images were obtained through the abdomen and pelvis. Sagittally and coronally reformatted images. 80 mL Isovue 370 injected intravenously. FINDINGS: Lung bases:Focal consolidation in the left lower lobe consistent with volume loss. Pneumonia is possible. There is a small pleural effusion, left larger than right. Liver:Markedly low density liver consistent with severe hepatic steatosis. No focal mass. Gallbladder, bilary:No calcified gallstones. No gallbladder wall thickening. No dilated intra or extrahepatic bile ducts. Spleen:No splenomegaly. Normal enhancement of splenic and portal veins. Pancreas:Findings consistent with acute interstitial edematous pancreatitis. There is peripancreatic inflammatory change and fluid. No focal fluid collection. No evidence for pseudocyst. Peripancreatic inflammatory change has decreased since 09/08/2022. There is fluid in the left retroperitoneum and anterior pararenal space. There is heterogeneous perfusion with slightly decreased attenuation in the pancreatic head and uncinate process. There is also decreased perfusion in the tail of the pancreas. Findings are consistent with pancreatic necrosis. Adrenal glands:Negative Kidneys,ureters,bladder:No solid renal mass. No hydronephrosis. No obstructing or nonobstructing calculi. No hydroureter. No ureteral calculus. There is a Berry catheter within the urinary bladder Gastrointestinal:No detectable colonic mass. There is no diverticulitis. Negative small bowel. No mechanical small bowel obstruction. No bowel wall thickening. No focal abnormality. Negative stomach and duodenum. No focal abnormality. Appendix: The appendix is negative. No evidence for appendicitis Vascular:Negative abdominal aorta. Superior mesenteric artery and celiac trunk are normal. Normal opacification of the inferior mesenteric artery Lymphatic:No retroperitoneal or mesenteric adenopathy Mesentery, peritoneum: No free intraperitoneal fluid. No mesenteric or retroperitoneal mass. No intra-abdominal abscess. Reproductive:Prostate is not enlarged Musculoskeletal:No lumbar compression fractures. Sacrum and pelvis are negative. No hip fracture. No abdominal wall or inguinal hernia IMPRESSION: 1. Interstitial edematous pancreatitis. Decreased peripancreatic inflammatory change since 09/08/2022 2. Decreased enhancement within the pancreatic head and tail consistent with pancreatic necrosis. 3. Severe hepatic steatosis. 4. Left pleural effusion and very small right pleural effusion. Left lower lobe volume loss or pneumonia The exam was performed using radiation dose optimization techniques including, but not limited to, automated exposure control, adjustment of the mA and/or kV according to patient size and use of iterative reconstruction technique. Interpreted and Authenticated by: Esequiel Voss 09/13/22
[2022-09-13] MEDS: oxyCODONE HCL 5 MG TABLET PO PRN (17:28)
[2022-09-13] MEDS: PANTOPRAZOLE 40 MG TABLET PO SCH (20:51)
[2022-09-13] MEDS: ACETAMINOPHEN 325 MG TABLET PO PRN (21:26)
[2022-09-14] MEDS: oxyCODONE HCL 5 MG TABLET PO PRN (00:39)
[2022-09-14] MEDS: 0.9 % SODIUM CHLORIDE 10 ML SYRINGE IV SCH (05:45)
[2022-09-14 06:59] LABS: Hematocrit 29.1 % (40.1-51.0); Hemoglobin 10.3 g/dL (13.7-17.5); Mean Cell Volume 99.3 fL (80.0-100.0); Mean Corpuscular HGB Conc 35.4 g/dL (31.0-36.0); Mean Platelet Volume 10.9 fL (8.8-12.5); Platelet Count 309 K/mcL (140-440); RBC 2.93 M/mcL (4.63-6.08); Red Cell Distribution Width 12.6 % (11.5-14.5); WBC 15.6 K/mcL (4.5-11.0)
[2022-09-14 07:44] LABS: ALT/SGPT 54 U/L (<40); AST/SGOT 59 U/L (<40); Albumin 3.2 gm/dL (3.2-5.2); Albumin/Globulin Ratio 0.9 (1.0-2.3); Alkaline Phosphatase 90 U/L (39-117); Bilirubin,Direct 0.2 mg/dL (<0.3); Bilirubin,Total 0.4 mg/dL (0.1-1.0); Blood Urea Nitrogen 12 mg/dL (6-20); Calcium 9.4 mg/dL (8.6-10.4); Carbon Dioxide 26 mmol/L (22-30); Chloride 94 mmol/L (96-108); Globulin 3.7 gm/dL (2.2-3.7); Glomerular Filtration Rate 85; Glucose 191 mg/dL (70-105); Lactate Dehydrogenase 243 U/L (135-225); Triglycerides 83 mg/dL (<150); Uric Acid 5.3 mg/dL (2.5-8.0)
[2022-09-14 08:08] LABS: Band Neutrophils % 5 % (0-10); Hypochromasia 1+ (None Seen); Lymphocytes % 9 % (15-49); Metamyelocytes % 1 %; Monocytes % (Manual) 13 % (1-12); Platelet Estimate NORMAL (Normal); RBC Morphology ABNORMAL (Normal); Segmented Neutrophils % 72 % (38-78)
--- NOTE | 2022-09-14 08:21 | Internal Med Progress Note ---
SUBJECTIVE Subjective Patient information: Note initiated : 09/14/22 at 8:04 am Service Date, if different from initiated Date: [] Patient: Go Kinsey 52 y/o M admitted on 09/08/22 for upper abd pain. Chief Complaint: [] Interval history: Mr. Kinsey is a 52 year old M history of chronic alcoholism, essential hypertensions, presenting with 1 day history of acute onset abdominal pain. Patient has a history of chronic alcoholism, and according to himself, he has been drinking even more for the past month since his father . He has been drinking 0.5 L of vodka per day with last use 2 days ago on . Yesterday night he had acute onset abdominal pain, epigastric with radiations to left upper quadrant, currently graded at 8 out of 10 in intensity, constant. It is complicated by nausea, vomiting, and loose stool. In addition, he has been to both alcohol Anonymous and inpatient alcohol rehab programs back in 1995. He is currently complain of insomnia, increased hand tremors, nausea vomiting, but he denies any hallucinations, anxiety, or agitations. Vital signs significant for tachycardia and tachypnea. Labs significant for serum lipase level 3050. AST ALT 58 and 25, respectively. Total bilirubin 1.8. CT of the abdomen showing presence of severe pancreatitis. No biliary obstructions or gallstone identified. Admission requested for alcoholic pancreatitis and potential alcohol withdrawal/delirium tremens. 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 CIWA score 14. Rapid response was called, and for limb restraint were placed. Precedex drip was also started last night, and patient is to be transferred to ICU status. Rest of the subjective not obtained due to clinical situations. Chest x-ray ordered this morning showing poor variations with bilateral a telectasis. Transfer patients to ICU status. 4-limbs restrained in place. Continue Precedex drips. Add scheduled Ativan IV. Saline lock the patient to prevent fluid overloading the patient. We will make the patient n.p.o. status right now due to his mentations. Continue CIWA protocol. Continue to provide narcotics as needed for abdominal pain due to alcoholic pancreatitis. 09/10: Patient was less agitated last night compared to the night before. Currently ordered restraints are off. He still on Precedex drip. CIWA scoring pending. No reported seizures overnight. Patient is waking up this morning and he is alert and oriented x3 to person place and time. Patient denies having any abdominal pain at the moment. He is just feeling very tired. We will keep the patient in the ICU. Continue to wean down or wean off Precedex drip as tolerated. Continue scheduled Ativan IV. We will start the patient on clear liquid diet and will advance as tolerated. Continue CIWA protocol. Continue to provide narcotics as needed for abdominal pain due to alcoholic pancreatitis. Pending physical therapy evaluation and treatment. Pending geriatric case manager consult for alcohol rehab referral. 09/11: CIWA score 16 this morning. Restraint was not initiated overnight. Precedex drip was being switched off earlier this morning. No seizures activities documented overnight. Patient's had a good sleep denies any insomnia. Negative for increased hand tremors. Patient denies any anxiety or agitations. He is still complain of mild GI upset with nausea but denies any vomiting and able to tolerate the breakfast with regular diet. He denies any visual or auditory hallucinations. Patient denies any abdominal pain. We will keep the patient in the ICU. Continue CIWA protocol with Ativan PO. Continue scheduled Ativan IV. Continue to provide narcotics as needed for abdominal pain due to alcoholic pancreatitis. Pending physical therapy evaluation and treatment. Pending geriatric case manager consult for alcohol rehab referral. 09/12: CIWA score overnight at this morning 10, 8, 5, respectively. Restraint was not initiated. Precedex drip has been off. Patient denies any visual or auditory hallucinations, stating that he only sees floaters. Denies anxiety or agitations. Denies nausea or vomiting. No increased hand tremors. Urine output is on the low end, currently at around 20 cc/h. Improving appetite. Denies any abdominal pain. We will transfer the patient from ICU to PCU. d/c scheduled Ativan IV. Continue CIWA protocol with Ativan PO. Continue to provide narcotics as needed for abdominal pain due to alcoholic pancreatitis. Pending physical therapy evaluation and treatment. Pending geriatric case manager consult for alcohol rehab referral. 09/13 Patient has intermittent fevers up to 101. Although he states he has fevers at home, and this been going on for years. He feels his abdominal pain is improving. Over his feet both hurt. Left is swollen. Some erythema around the MTP joint. Patient denies history of gout. Given the fevers however an elevated procalcitonin we will start empiric antibiotics for either cellulitis and will get repeat imaging of the abdomen to make sure nothing is developing in there such as abscess. 09/14 Patient feeling better today. Says his feet still feel painful more so on the left and especially around the MTP joint but not as bad. No fevers. Procalcitonin improving. Patient desiring to go home Review of Systems: denies headache/fever/chills/nausea/vomiting/chest pain/cough/dyspnea/diarrhea. Otherwise see above. Constitutional Vitals: Vital Signs Temp Pulse Resp BP Pulse Ox O2 Del Method O2 Flow Rate 97.8 F 92 H 16 155/94 97 0 09/14/22 00:38 09/14/22 06:00 09/14/22 06:01 09/14/22 06:01 09/14/22 06:00 09/14/22 06:01 09/14/22 00:38 Period Temp Pulse Resp BP Sys/Esquivel Pulse Ox O2 Del Method O2 Flow Rate Last 24 Hr 97.7 F-99.4 F 79-117 13-27 100-158/76-112 94-98 Room Air-Room Air 0 Intake and Output 09/13/22 09/14/22 09/14/22 19:59 03:59 11:59 Intake Total 300 250 Output Total 1675 900 230 Balance -1375 -650 -230 Weight 84.686 kg Intake & Output: Intake & Output 09/13/22 09/14/22 09/14/22 19:59 03:59 11:59 Intake Total 300 250 Output Total 1675 900 230 Balance -1375 -650 -230 Weight 84.686 kg Intake: IV 100 Rocephin 2 gm In Dextrose 5% in 50 Water 50 ml @ 100 mls/hr IV Q24H [facility] Rx#:[id number] Oral 200 250 Output: Urine Catheter Amount 1675 900 230 Other: Meal Dinner Percent of Meal Consumed 25% Feeding Ability Independent Urine Appearance Clear Clear Clear Urine Color Yellow Yellow Bright Yellow Urine Odor Normal Normal Normal Exam: General: Alert, Awake, No acute Distress, obese Eyes/N/T: EOMI, Head/Neck: neck supple, CV: RRR, No murmurs, Pulm: Clear b/l, no wheezing/rhonchi/rales Abd: soft, TTP throughout but improved, +BS x4 Ext: no clubbing/cyanosis, Left foot edema and erythema forefoot and MTP, right MTP red. all mildly improved Neuro: Alert, no focal deficits, moves all extremities, Skin: warm/dry OBJ DATA Labs CBC & Chem 7: 09/14/22 05:41 09/14/22 05:41 Labs: Abnormal Lab Results 09/14/22 09/14/22 09/14/22 05:41 05:41 05:41 WBC 15.6 H RBC 2.93 L Hgb 10.3 L Hct 29.1 L MCV MCH 35.2 H Immature Gran % (Auto) Lymph % (Auto) Graves % (Auto) Graves # (Auto) Lymphocytes % Monocytes % (Manual) Immature Gran # Platelet Estimate RBC Morphology Hypochromasia Macrocytosis Potassium Chloride 94 L Glucose 191 H Phosphorus Direct Bilirubin GGT 193 H AST 59 H ALT 54 H Lactate Dehydrogenase 243 H Albumin Albumin/Globulin Ratio 0.9 L Procalcitonin 1.01 H 09/13/22 09/13/22 09/13/22 05:42 05:42 05:42 WBC 11.9 H RBC 2.97 L Hgb 10.2 L Hct 29.9 L MCV 100.7 H MCH 34.3 H Immature Gran % (Auto) Lymph % (Auto) Graves % (Auto) Graves # (Auto) Lymphocytes % Monocytes % (Manual) 23 H Immature Gran # Platelet Estimate RBC Morphology Abnormal A Hypochromasia Macrocytosis 1+ A Potassium 3.1 L Chloride 95 L Glucose 112 H Phosphorus Direct Bilirubin 0.3 H GGT 174 H AST 72 H ALT 45 H Lactate Dehydrogenase 264 H Albumin 3.0 L Albumin/Globulin Ratio 0.9 L Procalcitonin 1.31 H 09/12/22 09/12/22 09/12/22 05:47 05:46 05:46 WBC RBC 2.98 L Hgb 10.6 L Hct 30.1 L MCV 101.0 H MCH 35.6 H Immature Gran % (Auto) 2.0 H Lymph % (Auto) 14.8 L Graves % (Auto) 19.6 H Graves # (Auto) 1.99 H Lymphocytes % Monocytes % (Manual) 14 H Immature Gran # 0.20 H Platelet Estimate RBC Morphology Abnormal A Hypochromasia 1+ A Macrocytosis 1+ A Potassium 3.1 L Chloride 95 L Glucose 156 H Phosphorus 1.1 L Direct Bilirubin GGT AST 76 H ALT Lactate Dehydrogenase Albumin 3.0 L Albumin/Globulin Ratio 0.9 L Procalcitonin 09/11/22 09/11/22 05:50 05:50 WBC RBC Hgb Hct MCV MCH Immature Gran % (Auto) Lymph % (Auto) Graves % (Auto) Graves # (Auto) Lymphocytes % 11 L Monocytes % (Manual) Immature Gran # Platelet Estimate Decreased A RBC Morphology Abnormal A Hypochromasia Macrocytosis 1+ A Potassium Chloride Glucose 107 H Phosphorus Direct Bilirubin GGT AST ALT Lactate Dehydrogenase Albumin 2.7 L Albumin/Globulin Ratio 0.8 L Procalcitonin Meds: Medications Acetaminophen (Acetaminophen 325 Mg Tablet) 650 mg PO Q6HP PRN; Protocol PRN Reason: Per Pain Protocol/Fever > 101 Last Admin: 09/13/22 21:26 Dose: 650 mg Al Hydrox/Mg Hydrox/Simethicone (Mag Hydrox/Al Hydrox/Simeth 30 Ml Oral.Susp) 30 ml PO Q4-6HP PRN PRN Reason: Dyspepsia Last Admin: 09/08/22 14:41 Dose: 30 ml Albuterol/Ipratropium (Ipratropium/Albuterol 3 Ml Ampul.Neb) 3 ml NEB Q4HRT PRN PRN Reason: Wheezing Last Admin: 09/13/22 09:35 Dose: 3 ml Artificial Tears (Carboxymethylcellulose Sodium 1 Each Droper.Gel) 1 each OU BIDP PRN PRN Reason: Dry Eye(S) Last Admin: 09/11/22 20:17 Dose: 1 each Atorvastatin Calcium (Atorvastatin 20 Mg Tablet) 20 mg PO QDAY [facility] Last Admin: 09/13/22 10:17 Dose: 20 mg Cetirizine HCl (Cetirizine 10 Mg Tablet) 10 mg PO BID [facility] Last Admin: 09/13/22 20:51 Dose: 10 mg Chlordiazepoxide HCl (Chlordiazepoxide 25 Mg Capsule) 25 mg PO UD PRN; Protocol PRN Reason: Alcohol Withdrawal/Assess CIWA Chlorhexidine Gluconate (Chlorhexidine Gluconate 1 Ml Oral.Radha) 15 ml SWABMOUTH BID [facility] Last Admin: 09/13/22 20:51 Dose: 15 ml Clonidine HCl (Clonidine Hcl 0.1 Mg Tablet) 0.1 mg PO Q4HP PRN PRN Reason: ALC Last Admin: 09/12/22 20:22 Dose: 0.1 mg Docusate Sodium (Docusate Sodium 100 Mg Capsule) 100 mg PO BID [facility] Last Admin: 09/13/22 20:50 Dose: Not Given Enoxaparin Sodium (Enoxaparin 40 Mg/0.4 Ml Syringe) 40 mg SQ DAILY [facility] Last Admin: 09/13/22 09:27 Dose: 40 mg Folic Acid (Folic Acid 1 Mg Tablet) 1 mg PO DAILY [facility] Last Admin: 09/13/22 09:27 Dose: 1 mg Guaifenesin (Guaifenesin 600 Mg Tab.Sr.12h) 600 mg PO BIDP PRN PRN Reason: Allergic Symptoms Haloperidol Lactate (Haloperidol Lactate 5 Mg/Ml Vial) 0.5 mg IV Q2HP PRN PRN Reason: Alcohol Withdrawal/Assess CIWA Last Admin: 09/09/22 08:56 Dose: 0.5 mg Hydralazine HCl (Hydralazine 20 Mg/Ml Vial) 10 mg IV Q4-6HP PRN PRN Reason: Hypertension Last Admin: 09/12/22 04:02 Dose: 10 mg Hydromorphone HCl (Hydromorphone 0.5 Mg/0.5 Ml Syringe) 0.5 mg IV Q2HP PRN; Protocol PRN Reason: Per Pain Protocol Last Admin: 09/13/22 13:43 Dose: 0.5 mg Hydroxyzine HCl (Hydroxyzine 25 Mg Tablet) 0 mg PO Q4HP PRN PRN Reason: Anxiety/Agitation Last Admin: 09/12/22 20:23 Dose: 50 mg Ceftriaxone Sodium 2 gm/ (Dextrose) 50 mls @ 100 mls/hr IV Q24H [facility] Last Infusion: 09/13/22 12:31 Dose: Infused Iron Carb/Multivit/Gold Tooler/Folic Acid (Multivit,Ther Iron,Ca,Fa & Min 1 Tablet) 1 tab PO DAILY [facility] Last Admin: 09/13/22 09:26 Dose: 1 tab Lactase (Lactase 1 Tablet) 1 tab PO TIDP PRN PRN Reason: Indigestion Last Admin: 09/13/22 09:27 Dose: 1 tab Lactulose (Lactulose 20 Gm/30 Ml Oral.Radha) 10 gm PO DAILYP PRN PRN Reason: Constipation Lidocaine (Lidocaine Patch) 1 patch TOPICAL QDAY [facility] Last Admin: 09/13/22 12:20 Dose: 1 patch Lidocaine HCl (Lidocaine Viscous 2% 15 Ml Unit Dose Cup) 5 ml PO TIDP PRN PRN Reason: Pain Lisinopril ([facility]op[facility] 20 Mg Tablet) [facility] [place] [facility] Admin: 09/13/22 09:27 Dose: 30 mg Lorazepam (Lorazepam 2 Mg/Ml Vial) 1 mg IV Q1HP PRN PRN Reason: Seizure Activity Last Admin: 09/09/22 01:09 Dose: 1 mg Lorazepam (Lorazepam 1 Mg Tablet) 2 mg PO Q2HP PRN PRN Reason: CIWA-A >6 or HR >100 Last Admin: 09/13/22 21:27 Dose: 2 mg Lorazepam (Lorazepam 2 Mg/Ml Vial) 0 mg IV UD PRN; Protocol PRN Reason: Alcohol Withdrawal/Assess CIWA Last Admin: 09/13/22 00:33 Dose: 2 mg Metoprolol Tartrate (Metoprolol Tartrate 25 Mg Tablet) 50 mg PO BID [facility] Last Admin: 09/13/22 20:51 Dose: 50 mg Ondansetron HCl (Ondansetron 4 Mg/2 Ml Vial) 4 mg IV Q4HP PRN; Protocol PRN Reason: Nausea And Vomiting Oxycodone HCl (Oxycodone Hcl 5 Mg Tablet) 10 mg PO Q4HP PRN; Protocol PRN Reason: Per Pain Protocol Last Admin: 09/14/22 00:39 Dose: 10 mg Pantoprazole Sodium (Pantoprazole 40 Mg Tablet) 40 mg PO [facility] Last Admin: 09/13/22 20:51 Dose: 40 mg Diclofenac Sodium [ Arthritis Pain ( Diclofenac)] 1% Gel 1 dose TOPICAL BIDP PRN PRN Reason: Pain Ketotifen Fumarate 0 (.025 % Drops) 1 dose OU BIDP PRN PRN Reason: Allergy Symptoms Prednisone (Prednisone 20 Mg Tablet) 40 mg PO [facility] Last Admin: 09/13/22 12:50 Dose: 40 mg Pregabalin (Pregabalin 25 Mg Capsule) 50 mg PO BID [facility] Last Admin: 09/13/22 20:51 Dose: 50 mg Senna (Sennosides 1 Tablet) 2 tab PO HSP PRN PRN Reason: Constipation Sodium Chloride (0.9 % Sodium Chloride 10 Ml Syringe) 10 ml IV Q8 [facility] Last Admin: 09/14/22 05:45 Dose: 10 ml Thiamine HCl (Thiamine 100 Mg Tablet) 100 mg PO QDAY [facility] Last Admin: 09/13/22 09:27 Dose: 100 mg Valacyclovir HCl (Valacyclovir 500 Mg Tablet) 500 mg PO DAILY [facility]; Protocol Last Admin: 09/13/22 09:28 Dose: 500 mg A/P Narrative A/P Narrative: Assessment and Plans: *Acute alcoholic pancreatitis: -low fat diet -f/u lipase -pain control -Channel Man patient about alcoholism, see below *Alcohol withdrawal/delirium tremens: -CIWA protocol -Ativan IV PRN seizure activities -Folic acid, Multivitamins, Thiamine -energy manager consult for alcohol rehab referral -Physical therapy evaluation and treatment *Intermittent fevers(pt states he gets at home at night chronically): 2/2 left foot cellulitis vs b/l gout vs pancreatic pathology -pt nontoxic and feeling better each day -afebrile for 36 hours -leukocytosis w/o bandemia increased 2/2 steroids likely. elevated pct but improving, cxr neg -repeat CT a/p with decreased inflammation, decreased enhancement of head/tail suggesting necrosis but no gas and pt does not appear toxic -Rocephin, BC *suspected gout b/l MTP: steroids x5 days *Essential hypertension: -Lisinopril/Metoprolol/Clonidine *Alcoholic steatohepatitis: Continue to monitor *Anemia, macrocytic: cbc w/ auto diff in the morning to trend H/H *Hypomagnesemia/hypokalemia/hypophosphatemia: Improving -replacement, trend serum level s *Obese: BMI 30. Lifestyle changes *ppx: Lovenox / ppi Time Spent With Patient Time: Total time spent is greater than 50% in coordination of care (as documented) at patient's floor/unit and/or counseling patient: Total time spent with greater than 50% in coordination of care (as documented) at patient's floor/unit and/or counseling patient:: 35 - 50 minutes QUALITY Restraints Restraint In Place: No
[2022-09-14] MEDS: ATORVASTATIN 20 MG TABLET PO SCH (09:10)
[2022-09-14] MEDS: LISINOPRIL 20 MG TABLET PO SCH (09:10)
[2022-09-14] MEDS: valACYclovir 500 MG TABLET PO SCH (09:10)
[2022-09-14] MEDS: cefTRIAXone 2 GM in DEXTROSE 5% IN WATER 50 ML IV SCH (09:10)
[2022-09-14] MEDS: CHLORHEXIDINE GLUCONATE 1 ML ORAL.SOL SWABMOUTH SCH (09:11)
[2022-09-14] MEDS: CETIRIZINE 10 MG TABLET PO SCH (09:11)
[2022-09-14] MEDS: THIAMINE 100 MG TABLET PO SCH (09:11)
[2022-09-14] MEDS: PREGABALIN 25 MG CAPSULE PO SCH (09:11)
[2022-09-14] MEDS: MULTIVIT,THER IRON,CA,FA & MIN 1 TABLET PO SCH (09:11)
[2022-09-14] MEDS: FOLIC ACID 1 MG TABLET PO SCH (09:11)
[2022-09-14] MEDS: predniSONE 20 MG TABLET PO SCH (09:11)
[2022-09-14] MEDS: DOCUSATE SODIUM 100 MG CAPSULE PO SCH (09:12)
[2022-09-14] MEDS: LIDOCAINE PATCH TOPICAL SCH (09:12)
[2022-09-14] MEDS: ENOXAPARIN 40 MG/0.4 ML SYRINGE SQ SCH (09:12)
[2022-09-14] MEDS: METOPROLOL TARTRATE 25 MG TABLET PO SCH (09:12)
[2022-09-14] MEDS ORDERED: NAPROXEN 250 MG TABLET PO SCH (11:10)
--- NOTE | 2022-09-14 11:47 | Discharge Summary ---
Discharge Provider Provider IMPORTANT FOLLOW-UP INFORMATION FOR PCP: Patient information: Note initiated : 09/14/22 at 11:45 am Service Date, if different from initiated Date: [] Patient: Go Kinsey 52 y/o M admitted on 09/08/22 for upper abd pain. Chief Complaint: [] Date of admission: 09/08/22 05:36 Discharge date: 09/14/22 Primary care physician: Unknown Unknown Consults: 09/09/22 07:28 Consult to Physician [CONS] Routine Comment: Consulting Provider: Tom Ferro Reason For Exam: Physician to Consult COURSE Hospital Course Hospital course: Interval history: Mr. Kinsey is a 52 year old M history of chronic alcoholism, essential hypertensions, presenting with 1 day history of acute onset abdominal pain. Patient has a history of chronic alcoholism, and according to himself, he has been drinking even more for the past month since his father . He has been drinking 0.5 L of vodka per day with last use 2 days ago on . Yesterday night he had acute onset abdominal pain, epigastric with radiations to left upper quadrant, currently graded at 8 out of 10 in intensity, constant. It is complicated by nausea, vomiting, and loose stool. In addition, he has been to both alcohol Anonymous and inpatient alcohol rehab programs back in 1995. He is currently complain of insomnia, increased hand tremors, nausea vomiting, but he denies any hallucinations, anxiety, or agitations. Vital signs significant for tachycardia and tachypnea. Labs significant for serum lipase level 3050. AST ALT 58 and 25, respectively. Total bilirubin 1.8. CT of the abdomen showing presence of severe pancreatitis. No biliary obstructions or gallstone identified. Admission requested for alcoholic pancreatitis and potential alcohol withdrawal/delirium tremens. 09/09: Patient's became very agitated and confused last night/tie layer. CIWA score 14. Rapid response was called, and for limb restraint were placed. Precedex drip was also started last night, and patient is to be transferred to ICU status. Rest of the subjective not obtained due to clinical situations. Chest x-ray ordered this morning showing poor variations with bilateral atelectasis. Transfer patients to ICU status. 4-limbs restrained in place. Continue Precedex drips. Add scheduled Ativan IV. Saline lock the patient to prevent fluid overloading the patient. We will make the patient n.p.o. status right now due to his mentations. Continue CIWA protocol. Continue to provide narcotics as needed for abdominal pain due to alcoholic pancreatitis. 09/10: Patient was less agitated last night compared to the night before. Currently ordered restraints are off. He still on Precedex drip. CIWA scoring pending. No reported seizures overnight. Patient is waking up this morning and he is alert and oriented x3 to person place and time. Patient denies having any abdominal pain at the moment. He is just feeling very tired. We will keep the patient in the ICU. Continue to wean down or wean off Precedex drip as tolerated. Continue scheduled Ativan IV. We will start the patient on clear liquid diet and will advance as tolerated. Continue CIWA protocol. Continue to provide narcotics as needed for abdominal pain due to alcoholic pancreatitis. Pending physical therapy evaluation and treatment. Pending high risk case manager consult for alcohol rehab referral. 09/11: CIWA score 16 this morning. Restraint was not initiated overnight. Precedex drip was being switched off earlier this morning. No seizures activities documented overnight. Patient's had a good sleep denies any insomnia. Negative for increased hand tremors. Patient denies any anxiety or agitations. He is still complain of mild GI upset with nausea but denies any vomiting and able to tolerate the breakfast with regular diet. He denies any visual or auditory hallucinations. Patient denies any abdominal pain. We will keep the patient in the ICU. Continue CIWA protocol with Ativan PO. Continue scheduled Ativan IV. Continue to provide narcotics as needed for abdominal pain due to alcoholic pancreatitis. Pending physical therapy evaluation and treatment. Pending high risk case manager consult for alcohol rehab referral. 09/12: CIWA score overnight at this morning 10, 8, 5, respectively. Restraint was not initiated. Precedex drip has been off. Patient denies any visual or auditory hallucinations, stating that he only sees floaters. Denies anxiety or agitations. Denies nausea or vomiting. No increased hand tremors. Urine output is on the low end, currently at around 20 cc/h. Improving appetite. Denies any abdominal pain. We will transfer the patient from ICU to PCU. d/c scheduled Ativan IV. Continue CIWA protocol with Ativan PO. Continue to provide narcotics as needed for abdominal pain due to alcoholic pancreatitis. Pending physical therapy evaluation and treatment. Pending high risk case manager consult for alcohol rehab referral. 09/13 Patient has intermittent fevers up to 101. Although he states he has fevers at home, and this been going on for years. He feels his abdominal pain is improving. Over his feet both hurt. Left is swollen. Some erythema around the MTP joint. Patient denies history of gout. Given the fevers however an elevated procalcitonin we will start empiric antibiotics for either cellulitis and will get repeat imaging of the abdomen to make sure nothing is developing in there such as abscess. 09/14 Patient feeling better today. Says his feet still feel painful more so on the left and especially around the MTP joint but not as bad. No fevers. Procalcitonin improving. 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 elevated pct but improving, cxr neg -Abx *suspected gout b/l MTP: steroids x5 days *Essential hypertension: *Alcoholic steatohepatitis: *Anemia, macrocytic: *Hypomagnesemia/hypokalemia/hypophosphatemia: *Obese: BMI 30. Lifestyle changes Discharge diagnosis: Alcoholic pancreatitis alcohol withdrawal delirium tremens alcoholic steato Secondary discharge diagnosis: left foot cellulitis, gout MTPs hypertension chronic anemia electrolyte disturbance obesity Time Spent with Patient Time attestation: Total time spent providing and/or coordinating discharge services: Time spent: Greater than 30 minutes EXAM Constitutional Vitals: Temp Pulse Resp BP Pulse Ox O2 Del Method O2 Flow Rate 98.1 F 95 H 21 135/96 98 0 09/14/22 08:01 09/14/22 10:01 09/14/22 10:01 09/14/22 10:01 09/14/22 10:01 09/14/22 06:01 09/14/22 00:38 Discharge Data Data Completed and Pending Labs on day of discharge: Labs from last 24 hours 09/14/22 09/14/22 09/14/22 05:41 05:41 05:41 WBC 15.6 H RBC 2.93 L Hgb 10.3 L Hct 29.1 L MCV 99.3 MCH 35.2 H MCHC 35.4 RDW 12.6 Plt Count 309 MPV 10.9 Seg Neutrophils % 72 Band Neutrophils % 5 Lymphocytes % 9 L Monocytes % (Manual) 13 H Metamyelocytes % 1 Platelet Estimate Normal RBC Morphology Abnormal A Hypochromasia 1+ A Sodium 134 Potassium 3.8 Chloride 94 L Carbon Dioxide 26 Anion Gap 14.0 BUN 12 Creatinine 1.0 GFR Calculation 85 Glucose 191 H Uric Acid 5.3 Calcium 9.4 Phosphorus 4.0 Magnesium 1.6 Total Bilirubin 0.4 Direct Bilirubin 0.2 GGT 193 H AST 59 H ALT 54 H Alkaline Phosphatase 90 Lactate Dehydrogenase 243 H Total Protein 6.9 Albumin 3.2 Globulin 3.7 Albumin/Globulin Ratio 0.9 L Triglycerides 83 Procalcitonin 1.01 H Discharge Plan Patient/Caregiver Discharge Instructions Activity: increase activity as tolerated Diet: Low Fat Activity Restrictions/Additional Instructions: Abstain from alcohol. Prescriptions: New prednisone 20 mg tablet 40 mg PO QDAY Qty: 6 0RF Rx Instructions: start on 09/15/2022. cefdinir 300 mg capsule 300 mg PO BID Qty: 10 0RF Continued pantoprazole 20 mg tablet,delayed release (DR/EC) 20 mg PO BID cetirizine 10 mg capsule 10 mg PO BID guaifenesin 600 mg tablet extended release 12hr 600 mg PO BIDP PRN (Reason: Allergic Symptoms) ketotifen fumarate 0.025 % (0.035 %) drops 1 drp ophthalmic (eye) BIDP PRN (Reason: Allergy Symptoms) Rx Instructions: OU lidocaine 4 % gel 1 applic TOPICAL BIDP PRN (Reason: Pain) Rx Instructions: Knee pain lisinopril 20 mg tablet 30 mg PO QAM metoprolol tartrate 50 mg tablet 50 mg PO BID pregabalin 100 mg capsule 50 mg PO BID lactase [Lactaid] 3,000 unit Tablet 9,000 unit PO TIDP PRN (Reason: Indigestion) Rx Instructions: Dairy consumption diclofenac sodium [Arthritis Pain (diclofenac)] 1 % Gel 1 ea TOPICAL BIDP PRN (Reason: Pain) atorvastatin 20 mg Tablet 20 mg PO QDAY triamcinolone acetonide 0.1 % Ointment 1 applic TOPICAL BIDP PRN (Reason: Rash) lidocaine 5 % Adhesive Patch,Medicated 1 patch TOPICAL QDAY Rx Instructions: leave on most painful area for up to 12 hrs lidocaine HCl [Lidocaine Viscous] 2 % Solution 5 ml PO TIDP PRN (Reason: Pain) Rx Instructions: As needed for mouth pain chlorhexidine gluconate 0.12 % Mouthwash 15 ml mucous membrane BID Rx Instructions: Swish and Spit valacyclovir 500 mg Tablet 500 mg PO DAILY carboxymethylcellulose sodium 1 % Drops, Liquid Gel 2 drp OPHTHALMIC (EYE) BIDP PRN (Reason: Dry Eye(S)) Rx Instructions: 2 drops both eyes bidp artificial tears solution Drops 1 drp OPHTHALMIC (EYE) BIDP PRN (Reason: Dry Eye(S)) Rx Instructions: 1 drop both eyes bidp Follow Up Plan Follow up with: Unknown,Unknown [Primary Care Provider] - Patient Disposition: Home, Self-Care Overall status at discharge: patient is progressing back to baseline Discharge Orders: Discharge Order (Routine); Ordered 09/14/22 Ordered By: Bhanu Goldberg
== END 2022-09-14 14:00 | disposition home or self-care (01) | DRG 439 ==
LOC: ED 01:43 → ICU 05:36
PROVIDERS: ADMIT Internal Medicine; ATTEND Internal Medicine